=== PATIENT | male | born 1960 | race Caucasian/White ===

== ENCOUNTER 2020-07-18 03:07 | Emergency (ER) | payer MEDICAID, SELFPAY ==
[2020-07-18 03:36] VITALS: BP 156/90; PULSE 65; RESP 16; TEMP 36.4; O2SAT 98; BMI 22.8
--- NOTE | 2020-07-18 04:02 | ED_ITS ---
HPI - Extremity Problem General Chief complaint: Extremity Problem Stated complaint: RIGHT ARM PAIN Time Seen by Provider: 07/18/20 03:56 Source: patient Mode of arrival: ambulatory Limitations: no limitations History of Present Illness HPI Narrative: Appearance: Alert. Oriented X3. No acute distress. Eyes: Pupils equal, round and reactive to light. ENT: Pharynx normal. Neck: Normal inspection. Neck supple. No lymph nodes noted. No crepitus CVS: Normal heart rate and rhythm. Pulses normal. Normal S1 and S2 Respiratory: No respiratory distress. Breath sounds normal. No Wheezing. No rales Abdomen: Soft and nontender. No rigidity. No distention. good BS x4 Skin: Skin warm and dry. Normal skin color. Normal skin turgor. Extremities: No lower extremity edema. No lower extremity edema. No Lacerati ons. No Rash Neuro: Oriented X 3. No motor deficit. No sensory deficit. Moving all extermities. No slurred speech.Patient comes emergency room complaining of right forearm pain. Patient states that he injected heroin yesterday, states that this morning he started having redness in his right forearm, going upward in the pattern of his vein. Patient denies fever or chills. Patient denies pain a nywhere else in his arm other than the red streak Related Data Home Medications Medication Instructions Recorded Confirmed clonazepam 0.5 mg PO TID 02/12/20 02/12/20 dextroamphetamine-amphetamine 5 mg PO DAILY 02/12/20 02/12/20 [Adderall] methadone 48 mg PO DAILY 02/13/20 02/13/20 Previous Rx's Medication Instructions Recorded sulfamethoxazole-trimethoprim 1 tab PO BID #19 tab 07/18/20 [Bactrim DS] Allergies Allergy/AdvReac Type Severity Reaction Status Date / Time No Known Allergies Allergy Unverified 02/12/20 14:44 [No Known Allergies*] Review of Systems Review of Systems: Constitutional : No Weight loss, No Fever, No Chills, No Night Sweats, No Fatigue, No Malaise ENT/Mouth : No Hearing loss, No Ear Pain, No Nasal Congestion, No Sinus Pain, No Hoarseness, No sore throat, No Rhinorrhea, No Swallowing Difficulty Eyes: No Eye Pain, No Swelling, No Redness, No Foreign Body, No Discharge, No Vision Changes Cardiovascular : No Chest Pain, No SOB, No Dyspnea on Exertion, No Orthopnea, No Edema, No Palpitations Respiratory : No Cough, No Sputum, No Wheezing, No Smoke Exposure, No Dyspnea Gastrointestinal : No Nausea, No Vomiting, No Diarrhea, No Constipation, No abdominal Pain, No Hematochezia, No Melena Genitourinary : no irregular bleeding, No Dysuria, No Urinary Frequency, No Hematuria, No Urinary Incontinence, No Urgency, No Flank Pain, No Urinary Flow Changes, No Hesitancy Musculoskeletal : No joint pain, No Myalgias, No Joint Swelling Skin : Red streak in the right forearm and pain in that area Neuro : No Weakness, No Numbness, No Paresthesias, No Loss of Consciousness, No Dizziness, No Headache Psych : No Anxiety/Panic, No Depression, No SI/HI/AH/VH, No Social Issues, Heme/Lymph: No Bruising, No Bleeding,No Lymphadenopathy Endocrine : No Polyuria, No Polydipsia, No Temperature Intolerance PMFSH Past Medical History Medical History ADD (attention deficit disorder) Bipolar affective disorder Depression GERD (gastroesophageal reflux disease) Herniated cervical disc Hiccups History of BPH History of torsion of testis Hx of hepatitis C Hx of substance abuse Surgical History History of cystoscopy Hx of adenoidectomy Hx of colonoscopy Hx of hernia repair S/P rotator cuff repair Status post excision of lipoma Social History Social History Advance Directives: No Advance Directives Information Provided: No Physical Exam Vital Signs: Vital Signs: Last Vital Signs Temp 97.6 F 07/18/20 03:36 Pulse 65 07/18/20 04:29 Resp 18 07/18/20 04:29 BP 131/90 H 07/18/20 04:29 Pulse Ox 95 07/18/20 04:29 Body Mass Index 22.8 Appearance: Alert. Oriented X3. No acute distress. Eyes: Pupils equal, round and reactive to light. ENT: Pharynx normal. Neck: Normal inspection. Neck supple. No lymph nodes noted. No crepitus CVS: Normal heart rate and rhythm. Pulses normal. Normal S1 and S2 Respiratory: No respiratory distress. Breath sounds normal. No Wheezing. No rales Abdomen: Soft and nontender. No rigidity. No distention. good BS x4 Skin: Skin warm and dry. Multiple skin track cobb in both arms. There is a 5 cm streak in the right forearm, mild tenderness to palpation, no surrounding erythema, patient is able to flex and extend all fingers in both hands Extremities: No lower extremity edema. No lower extremity edema. No Lacerations. No Rash Neuro: Oriented X 3. No motor deficit. No sensory deficit. Moving all extermities. No slurred speech. Course Course Course Narrative: I discussed the labs with the patient, sepsis is not suspected. White blood cell count normal, lactate normal no fever, normal blood pressure. Patient was given 1 initial dose of Bactrim which covers MRSA. Patient instructed to return to the emergency room if the erythema spreads DVT in upper extremity is not suspected. Pain is very localized to the erythema in a 5 cm spot MDM - Extremity (Nontraumatic) Lab Data Result diagrams: 07/18/20 05:13 07/18/20 05:12 Labs: Lab Results 07/18/20 07/18/20 07/18/20 Range/Units 04:51 05:12 05:13 WBC 6.0 (4.8-10.8) X10*3/uL RBC 4.44 L (4.60-5.80) X10*6/uL Hgb 13.1 L (14.0-18.0) g/dl Hct 39.2 L (42-52) % MCV 88.3 (80-98) fL MCH 29.5 (27.0-33.0) pg MCHC 33.4 (31.0-36.0) g/dl RDW 13.6 (11.0-16.0) % Plt Count 273 (160-400) X10*3/uL MPV 8.2 L (9.4-12.4) fL Immature Gran % (Auto) 0.5 H (0.0-0.4) % Neut % (Auto) 65.2 (45-73) % Lymph % (Auto) 21.6 (20-40) % [place] % (Auto) 8.3 (2-11) % Eos % (Auto) 3.7 (0-4) % Baso % (Auto) 0.7 (0-2) % Lymph # (Auto) 1.3 (1.2-4.9) X10*3/uL [place] # (Auto) 0.5 (0.1-1.2) X10*3/uL Eos # (Auto) 0.2 (0.0-0.4) X10*3/uL Baso # (Auto) 0.0 (0.0-0.2) X10*3/uL Abs Immat Gran (auto) 0.03 (0.00-0.03) X10*3/uL Absolute Neuts (auto) 3.9 (2.0-8.3) X10*3/uL Absolute Nucleated RBC 0.000 (0.0-0.012) X10*3/uL Nucleated RBC % (auto) 0.0 (0.0-0.2) /100WBC Sodium 139 (135-145) mmol/L Potassium 4.3 (3.3-5.1) mmol/L Chloride 103 (96-108) mmol/L Carbon Dioxide 27 (22-29) mmol/L Anion Gap 13 (12-20) BUN 15 (9-16) mg/dL Creatinine 0.83 (0.5-1.4) mg/dL Estim Creat Clear Calc 89.9 Estimated GFR > 60 Random Glucose 112 (60-115) mg/dL Lactic Acid 1.0 (0.5-2.0) mmol/L Calcium 9.5 (8.4-10.2) mg/dL Discharge Plan Discharge Clinical Impression: Superficial thrombophlebitis Qualifiers: Superficial thrombophlebitis-Involved body area: upper extremity Laterality: right Qualified Code(s): I80.8 - Phlebitis and thrombophlebitis of other sites Patient Disposition: Home, Self-Care Instructions: Superficial Thrombophlebitis (ED) Additional Instructions: Please follow-up with your primary care physician tomorrow. If you have any worsening or new symptoms, please return to the emergency room or call 911 Prescriptions: New sulfamethoxazole-trimethoprim [Bactrim DS] 800-160 mg tablet 1 tab PO BID Qty: 19 RF: 0 No Action clonazepam 0.5 mg Tablet 0.5 mg PO TID RF: 0 dextroamphetamine-amphetamine [Adderall] 5 mg Tablet 5 mg PO DAILY RF: 0 methadone 10 mg/mL Concentrate 48 mg PO DAILY RF: 0
[2020-07-18 04:29] VITALS: BP 131/90; PULSE 65; RESP 18; O2SAT 95
[2020-07-18 05:20] LABS: Basophils Percent Auto 0.7 % (0-2); Eosinophils Absolute Auto 0.2 X10*3/uL (0.0-0.4); Eosinophils Percent Auto 3.7 % (0-4); Hematocrit 39.2 % (42-52); Hemoglobin 13.1 g/dl (14.0-18.0); Imm Gran Abs Auto 0.03 X10*3/uL (0.00-0.03); Imm Gran Pct Auto 0.5 % (0.0-0.4); Lymphocytes Absolute Auto 1.3 X10*3/uL (1.2-4.9); Lymphocytes Percent Auto 21.6 % (20-40); Mean Corpuscular HGB Conc 33.4 g/dl (31.0-36.0); Mean Corpuscular Hemoglobin 29.5 pg (27.0-33.0); Mean Corpuscular Volume 88.3 fL (80-98); Mean Platelet Volume 8.2 fL (9.4-12.4); Monocytes Absolute Auto 0.5 X10*3/uL (0.1-1.2); Monocytes Percent Auto 8.3 % (2-11); Neutrophils Absolute Auto 3.9 X10*3/uL (2.0-8.3); Neutrophils Percent Auto 65.2 % (45-73); Platelet Count 273 X10*3/uL (160-400); Red Blood Count 4.44 X10*6/uL (4.60-5.80); Red Cell Distribution Width 13.6 % (11.0-16.0)
[2020-07-18 05:27] LABS: MANUAL DIFF FLAG NO
[2020-07-18 05:40] LABS: Anion Gap 13 (12-20); Blood Urea Nitrogen 15 mg/dL (9-16); Calcium 9.5 mg/dL (8.4-10.2); Carbon Dioxide 27 mmol/L (22-29); Chloride 103 mmol/L (96-108); Creatinine Clr Calc Pharmacy 89.9; Estimated Glomerular Filt Rate > 60; Glucose Random 112 mg/dL (60-115); Potassium 4.3 mmol/L (3.3-5.1); Sodium 139 mmol/L (135-145)
[2020-07-18 06:14] VITALS: BP 143/92; PULSE 68; RESP 20; O2SAT 96
== END 2020-07-18 06:19 | disposition home or self-care (01) ==
PROVIDERS: Emergency Provider Emergency Medicine; PCP Internal Medicine
DX: I80.8 Phlebitis and thrombophlebitis of other sites (principal); M79.631 Pain in right forearm; F11.10 Opioid abuse, uncomplicated; Z86.19 Personal history of other infectious and parasitic diseases
CPT/HCPCS: 36415; 80048; 83605; 85025; 87040; 99283; 99284

== ENCOUNTER 2020-07-22 21:51 | Emergency (ER) | payer MEDICAID, SELFPAY ==
[2020-07-22 21:55] VITALS: BP 134/76; PULSE 79; RESP 16; TEMP 36.6; O2SAT 95; BMI 24.3
--- NOTE | 2020-07-22 22:27 | ED.GENADULT ---
HPI - General Adult General Chief complaint: General Medical Stated complaint: VEIN PAIN IN ARM Time Seen by Provider: 07/22/20 22:06 Source: patient Mode of arrival: ambulatory Limitations: no limitations History of Present Illness HPI narrative: 60-year-old male who presents emergency department for evaluation of pain in his right arm, patient was seen in the emergency department on 07/18/2020 and diagnosed with superficial thrombophlebitis secondary to injecting illicit drugs into his right arm. The patient had a laboratory evaluation at that time which was unremarkable including blood cultures which revealed no growth times 48 hours. The patient was started on Bactrim DS 1 pill twice a day. He states he has been taking his medication for 4 days with no improvement of his symptoms. He states that he has a constant, throbbing pain in the right forearm in the area where he has the thrombophlebitis. He states the redness is not improved. The pain is 6/10 at its worst. He did not take any medications for the pain. He denies injecting drugs in his right arm since he was diagnosed with superficial thrombophlebitis. He denies fever but he does feel fatigued. The patient is not interested in getting any assistance for his continued injection drug use. Related Data Home Medications Medication Instructions Recorded Confirmed clonazepam 0.5 mg PO TID 02/12/20 02/12/20 dextroamphetamine-amphetamine 5 mg PO DAILY 02/12/20 02/12/20 [Adderall] methadone 48 mg PO DAILY 02/13/20 02/13/20 Previous Rx's Medication Instructions Recorded sulfamethoxazole-trimethoprim 1 tab PO BID #19 tab 07/18/20 [Bactrim DS] cephalexin 500 mg PO QID 7 Days #28 cap 07/22/20 ibuprofen 600 mg PO Q6H PRN #30 tab 07/22/20 Allergies Allergy/AdvReac Type Severity Reaction Status Date / Time No Known Allergies Allergy Unverified 02/12/20 14:44 [No Known Allergies*] Review of Systems Review of Systems: Yes all other systems are reviewed and are negative Neurologic: Reports Abnormal speech present [facility] Past Medical History [facility] Narrative: The patient smokes 5 cigarettes per day, he states that he used to smoke 1 pack per day times 47 years, denies alcohol use, he continues to use injection heroin and cocaine. He uses both arms to inject these illicit substances. Medical History ADD (attention deficit disorder) Bipolar affective disorder Depression GERD (gastroesophageal reflux disease) Herniated cervical disc Hiccups History of BPH History of torsion of testis Hx of hepatitis C Hx of substance abuse Surgical History History of cystoscopy Hx of adenoidectomy Hx of colonoscopy Hx of hernia repair S/P rotator cuff repair Status post excision of lipoma Social History Social History Advance Directives: No Advance Directives Information Provided: No Physical Exam Vital Signs: Vital Signs: Last Vital Signs Temp 97.8 F 07/22/20 21:55 Pulse 79 07/22/20 21:55 Resp 16 07/22/20 21:55 BP 134/76 07/22/20 21:55 Pulse Ox 95 07/22/20 21:55 Body Mass Index 24.3 Const: General: cooperative, poor hygiene and other (Pleasant and cooperative) Nutritional Appearance: average body habitus Orientation/consciousness: oriented to person and oriented to place Limitations: no limitations HENMT: Head: Yes normal to inspection Ears: hearing grossly normal bilaterally Eyes: General: appearance normal, both eyes and all related structures Resp: Effort & Inspection: normal respiratory effort Skin: Other: The patient has multiple track cobb on both his left and right forearms, the right forearm reveals a linear area of erythema which is warm to the touch and tender and hard to palpation, this is consistent with his diagnosis of superficial thrombophlebitis. Neuro: General: oriented to person and oriented to place Cognition (Neuro): normal cognition Speech: Abnormal speech present Gait exam (Neuro): Normal gait present Psych: Appearance: grossly normal Mental Status: mental status grossly normal Speech and movement: Normal speech and movement present Affect: normal affect Attitude: cooperative Course Course Course Narrative: 60-year-old male with a history of injection drug use who presents to the emergency department for evaluation of superficial thrombophlebitis which is has not improved since starting Bactrim. Patient was advised to finish his course of Bactrim and was also started on cephalexin 500 mg 4 times a day for 7 days. He is advised to take ibuprofen Tylenol for pain and to use a heating pad on low for 15-20 minutes 4 to 6 times a day. He was given verbal and printed instructions on superficial thrombophlebitis and discharged home. I did offer him counseling for his injection drug use however states he is not interested in getting counseling at this time. Discharge Plan Discharge Clinical Impression: Superficial thrombophlebitis of arm Qualifiers: Laterality: right Qualified Code(s): I80.8 - Phlebitis and thrombophlebitis of other sites Patient Disposition: Home, Self-Care Instructions: Superficial Thrombophlebitis (ED) Additional Instructions: Your findings are consistent with a blood clot in infection the of the right arm, this is called superficial thrombophlebitis. Finish the Bactrim (sulfamethoxazole- trimethoprim) DS 1 pill twice a day. Also take Keflex (cephalexin) 500 mg pills, 1 pill 4 times a day for 7 days. Take ibuprofen 600 mg pills, 1 pills every 6 hours as needed for pain. Take Tylenol (acetaminophen) 500 mg pills, 2 pills every 4 to 6 hours as needed for pain. Follow-up with your doctor in 2 days. Please return to the emergency department if your symptoms get worse or if you develop any symptoms that are concerning to you. Prescriptions: New cephalexin 500 mg capsule 500 mg PO QID 7 Days Qty: 28 RF: 0 ibuprofen 600 mg tablet 600 mg PO Q6H PRN (Reason: pain) Qty: 30 RF: 0 No Action clonazepam 0.5 mg Tablet 0.5 mg PO TID RF: 0 dextroamphetamine-amphetamine [Adderall] 5 mg Tablet 5 mg PO DAILY RF: 0 methadone 10 mg/mL Concentrate 48 mg PO DAILY RF: 0 sulfamethoxazole-trimethoprim [Bactrim DS] 800-160 mg tablet 1 tab PO BID Qty: 19 RF: 0
[2020-07-22] MEDS: Ibuprofen 600 MG TABLET PO (23:26)
[2020-07-22] MEDS: cephALEXin 500 MG CAPSULE PO (23:26)
[2020-07-22 23:35] VITALS: BP 111/62; PULSE 77; RESP 16; TEMP 36.8; O2SAT 98
== END 2020-07-22 23:36 | disposition home or self-care (01) ==
PROVIDERS: Emergency Provider Emergency Medicine Emergency Medical Services; PCP Internal Medicine
DX: I80.8 Phlebitis and thrombophlebitis of other sites (principal); M79.601 Pain in right arm; F11.20 Opioid dependence, uncomplicated; F17.210 Nicotine dependence, cigarettes, uncomplicated; Z86.19 Personal history of other infectious and parasitic diseases
CPT/HCPCS: 99283; 99284

== ENCOUNTER 2020-12-14 06:13 | Emergency (ER) | payer MEDICAID, SELFPAY ==
[2020-12-14 06:22] VITALS: BP 143/86; PULSE 80; RESP 16; TEMP 36.4; O2SAT 96; BMI 22.1
--- NOTE | 2020-12-14 06:29 | ED.SKABFB ---
HPI - Skin/Abscess/Foreign Bdy General Chief complaint: Skin/Abscess/Foreign Body Stated complaint: arm infection Time Seen by Provider: 12/14/20 06:18 Source: patient Mode of arrival: ambulatory Limitations: no limitations History of Present Illness HPI narrative: Patient comes to the emergency room complaining of pain in his upper arm for the last 2 days. Patient denies fever chills. Patient states the pain is similar to the time that he was diagnosed with thrombophlebitis. Patient is known to be an IV drug user. At this time, patient does not have any abscesses that need to be drained, no cellulitis. Patient states his arm is not swollen, the pain is intermittent, worse with certain movements Related Data Home Medications Medication Instructions Recorded Confirmed clonazepam 0.5 mg tablet 0.5 mg PO TID 02/12/20 02/12/20 dextroamphetamine-amphetamine 5 mg 5 mg PO DAILY 02/12/20 02/12/20 tablet (Adderall) methadone 10 mg/mL oral concentrate 48 mg PO DAILY 02/13/20 02/13/20 Previous Rx's Medication Instructions Recorded sulfamethoxazole 800 1 tab PO BID #19 tab 07/18/20 mg-trimethoprim 160 mg tablet (Bactrim DS) cephalexin 500 mg capsule 500 mg PO QID 7 Days #28 cap 07/22/20 ibuprofen 600 mg tablet 600 mg PO Q6H PRN #30 tab 07/22/20 cephalexin 750 mg capsule 750 mg PO BID #20 cap 12/14/20 doxycycline hyclate 100 mg tablet 100 mg PO BID #20 tab 12/14/20 Allergies Allergy/AdvReac Type Severity Reaction Status Date / Time No Known Allergies Allergy Verified 08/07/20 07:15 [No Known Allergies*] Review of Systems Review of Systems: Constitutional : No Weight loss, No Fever, No Chills, No Night Sweats, No Fatigue, No Malaise ENT/Mouth : No Hearing loss, No Ear Pain, No Nasal Congestion, No Sinus Pain, No Hoarseness, No sore throat, No Rhinorrhea, No Swallowing Difficulty Eyes: No Eye Pain, No Swelling, No Redness, No Foreign Body, No Discharge, No Vision Changes Cardiovascular : No Chest Pain, No SOB, No Dyspnea on Exertion, No Orthopnea, No Edema, No Palpitations Respiratory : No Cough, No Sputum, No Wheezing, No Smoke Exposure, No Dyspnea Gastrointestinal : No Nausea, No Vomiting, No Diarrhea, No Constipation, No abdominal Pain, No Hematochezia, No Melena Genitourinary : no irregular bleeding, No Dysuria, No Urinary Frequency, No Hematuria, No Urinary Incontinence, No Urgency, No Flank Pain, No Urinary Flow Changes, No Hesitancy Musculoskeletal : Complaining of right upper arm pain, No Myalgias, No Joint Swelling Skin : No Skin Lesions, No rash Neuro : No Weakness, No Numbness, No Paresthesias, No Loss of Consciousness, No Dizziness, No Headache Psych : No Anxiety/Panic, No Depression, No SI/HI/AH/VH, No Social Issues, Heme/Lymph: No Bruising, No Bleeding,No Lymphadenopathy Endocrine : No Polyuria, No Polydipsia, No Temperature Intolerance PMFSH Past Medical History Medical History ADD (attention deficit disorder) Bipolar affective disorder Depression GERD (gastroesophageal reflux disease) Herniated cervical disc Hiccups History of BPH History of torsion of testis Hx of hepatitis C Hx of substance abuse Surgical History History of cystoscopy Hx of adenoidectomy Hx of colonoscopy Hx of hernia repair S/P rotator cuff repair Status post excision of lipoma Social History Social History Advance Directives: No Advance Directives Information Provided: No Physical Exam Vital Signs: Vital Signs: Last Vital Signs Temp 97.6 F 12/14/20 06:22 Pulse 80 12/14/20 06:22 Resp 16 12/14/20 06:22 BP 143/86 H 12/14/20 06:22 Pulse Ox 96 12/14/20 06:22 Body Mass Index 22.1 Const: Other: Appearance: Alert. Oriented X3. No acute distress. Eyes: Pupils equal, round and reactive to light. ENT: Pharynx normal. Neck: Normal inspection. Neck supple. No lymph nodes noted. No crepitus CVS: Normal heart rate and rhythm. Pulses normal. Normal S1 and S2 Respiratory: No respiratory distress. Breath sounds normal. No Wheezing. No rales Abdomen: Soft and nontender. No rigidity. No distention. good BS x4 Skin: Skin warm and dry. Multiple skin track cobb in both arms, crusting lesions throughout both arms, palpable cords in the distal aspect of her arms, now swelling, no erythema Extremities: No lower extremity edema. No lower extremity edema. No Lacerations. No Rash Neuro: Oriented X 3. No motor deficit. No sensory deficit. Moving all extermities. No slurred speech. Course Course Course Narrative: I discussed the labs with the patient, white blood cell count and lactic acid within normal limits, no fever. MDM - Skin/Abscess/Foreign Bdy Lab Data Result diagrams: 12/14/20 06:38 12/14/20 06:38 Labs: Lab Results 12/14/20 12/14/20 12/14/20 Range/Units 06:38 06:38 06:38 WBC 5.1 (4.8-10.8) X10*3/uL RBC 4.29 L (4.60-5.80) X10*6/uL Hgb 12.4 L (14.0-18.0) g/dl Hct 36.2 L (42-52) % MCV 84.4 (80-98) fL MCH 28.9 (27.0-33.0) pg MCHC 34.3 (31.0-36.0) g/dl RDW 13.5 (11.0-16.0) % Plt Count 228 (160-400) X10*3/uL MPV 8.2 L (9.4-12.4) fL Immature Gran % (Auto) 0.2 (0.0-0.4) % Neut % (Auto) 50.6 (45-73) % Lymph % (Auto) 34.3 (20-40) % [place] % (Auto) 9.8 (2-11) % Eos % (Auto) 4.5 H (0-4) % Baso % (Auto) 0.6 (0-2) % Lymph # (Auto) 1.8 (1.2-4.9) X10*3/uL [place] # (Auto) 0.5 (0.1-1.2) X10*3/uL Eos # (Auto) 0.2 (0.0-0.4) X10*3/uL Baso # (Auto) 0.0 (0.0-0.2) X10*3/uL Abs Immat Gran (auto) 0.01 (0.00-0.03) X10*3/uL Absolute Neuts (auto) 2.6 (2.0-8.3) X10*3/uL Absolute Nucleated RBC 0.000 (0.0-0.012) X10*3/uL Nucleated RBC % (auto) 0.0 (0.0-0.2) /100WBC Sodium 135 (135-145) mmol/L Potassium 4.0 (3.3-5.1) mmol/L Chloride 103 (96-108) mmol/L Carbon Dioxide 27 (22-29) mmol/L Anion Gap 9 L (12-20) BUN 10 (9-16) mg/dL Creatinine 0.84 (0.5-1.4) mg/dL Estim Creat Clear Calc 88.8 Estimated GFR > 60 Random Glucose 114 (60-115) mg/dL Lactic Acid 1.1 (0.5-2.0) mmol/L Calcium 9.3 (8.4-10.2) mg/dL Total Bilirubin 0.4 (0.0-1.0) mg/dL Direct Bilirubin 0.2 (0.0-0.5) mg/dL AST 16 (5-37) U/L ALT 14 (0-40) U/L Alkaline Phosphatase 88 (39-117) U/L Total Protein 7.4 (6.5-8.0) g/dL Albumin 3.7 (3.5-5.0) g/dL Discharge Plan Discharge Clinical Impression: Thrombophlebitis of arm, right Patient Disposition: Home, Self-Care Instructions: Superficial Thrombophlebitis (ED) Additional Instructions: Please follow-up with your primary care physician tomorrow. If you have any worsening or new symptoms, please return to the emergency room or call 911 Prescriptions: New doxycycline hyclate 100 mg tablet 100 mg PO BID Qty: 20 RF: 0 cephalexin 750 mg capsule 750 mg PO BID Qty: 20 RF: 0 No Action clonazepam 0.5 mg Tablet 0.5 mg PO TID RF: 0 dextroamphetamine-amphetamine [Adderall] 5 mg Tablet 5 mg PO DAILY RF: 0 methadone 10 mg/mL Concentrate 48 mg PO DAILY RF: 0 cephalexin 500 mg capsule 500 mg PO QID 7 Days Qty: 28 RF: 0 ibuprofen 600 mg tablet 600 mg PO Q6H PRN (Reason: pain) Qty: 30 RF: 0 sulfamethoxazole-trimethoprim [Bactrim DS] 800-160 mg tablet 1 tab PO BID Qty: 19 RF: 0
[2020-12-14 06:44] LABS: MANUAL DIFF FLAG NO
[2020-12-14 06:45] LABS: Basophils Percent Auto 0.6 % (0-2); Eosinophils Absolute Auto 0.2 X10*3/uL (0.0-0.4); Eosinophils Percent Auto 4.5 % (0-4); Hematocrit 36.2 % (42-52); Hemoglobin 12.4 g/dl (14.0-18.0); Imm Gran Abs Auto 0.01 X10*3/uL (0.00-0.03); Imm Gran Pct Auto 0.2 % (0.0-0.4); Lymphocytes Absolute Auto 1.8 X10*3/uL (1.2-4.9); Lymphocytes Percent Auto 34.3 % (20-40); Mean Corpuscular HGB Conc 34.3 g/dl (31.0-36.0); Mean Corpuscular Hemoglobin 28.9 pg (27.0-33.0); Mean Corpuscular Volume 84.4 fL (80-98); Mean Platelet Volume 8.2 fL (9.4-12.4); Monocytes Absolute Auto 0.5 X10*3/uL (0.1-1.2); Monocytes Percent Auto 9.8 % (2-11); Neutrophils Absolute Auto 2.6 X10*3/uL (2.0-8.3); Neutrophils Percent Auto 50.6 % (45-73); Platelet Count 228 X10*3/uL (160-400); Red Blood Count 4.29 X10*6/uL (4.60-5.80); Red Cell Distribution Width 13.5 % (11.0-16.0); White Blood Count 5.1 X10*3/uL (4.8-10.8)
[2020-12-14 06:56] LABS: Lactic Acid 1.1 mmol/L (0.5-2.0)
[2020-12-14 07:21] LABS: Alanine Aminotransferase 14 U/L (0-40); Albumin Level 3.7 g/dL (3.5-5.0); Alkaline Phosphatase 88 U/L (39-117); Anion Gap 9 (12-20); Aspartate Amino Transferase 16 U/L (5-37); Bilirubin Direct 0.2 mg/dL (0.0-0.5); Bilirubin Total 0.4 mg/dL (0.0-1.0); Blood Urea Nitrogen 10 mg/dL (9-16); Calcium 9.3 mg/dL (8.4-10.2); Carbon Dioxide 27 mmol/L (22-29); Chloride 103 mmol/L (96-108); Creatinine Clr Calc Pharmacy 88.8; Estimated Glomerular Filt Rate > 60; Glucose Random 114 mg/dL (60-115); Sodium 135 mmol/L (135-145); Total Protein 7.4 g/dL (6.5-8.0)
[2020-12-14 07:53] VITALS: BP 145/87; PULSE 57; RESP 16; TEMP 36.6; O2SAT 97
[2020-12-14] MEDS: cephALEXin 500 MG CAPSULE PO (08:13)
== END 2020-12-14 08:20 | disposition home or self-care (01) ==
PROVIDERS: Emergency Provider Emergency Medicine; PCP Internal Medicine
DX: I80.8 Phlebitis and thrombophlebitis of other sites (principal); F11.10 Opioid abuse, uncomplicated; Z79.899 Other long term (current) drug therapy
CPT/HCPCS: 36415; 80048; 80076; 83605; 85025; 87040; 99284

== ENCOUNTER 2020-12-21 19:42 | Emergency (ER) | payer MEDICAID, SELFPAY ==
[2020-12-21 19:54] VITALS: BP 122/88; PULSE 75; RESP 16; TEMP 36.3; O2SAT 98; BMI 22.1
== END 2020-12-21 20:44 | disposition left against medical advice (07) ==
PROVIDERS: Emergency Provider Emergency Medicine; PCP Internal Medicine
DX: R20.0 Anesthesia of skin (principal); F14.10 Cocaine abuse, uncomplicated
CPT/HCPCS: 99281; 99282

== ENCOUNTER 2020-12-22 12:55 | Emergency (ER) | payer MEDICAID, SELFPAY ==
[2020-12-22 14:04] VITALS: BP 125/83; PULSE 82; RESP 20; TEMP 37; O2SAT 97; BMI 22.1
--- NOTE | 2020-12-22 16:24 | ED_ITS ---
HPI - General Adult General Chief complaint: General Medical Stated complaint: tingling pain in fingers Time Seen by Provider: 12/22/20 16:18 Source: patient and old records reviewed Mode of arrival: ambulatory Limitations: no limitations History of Present Illness MD complaint: resolved tingling in fingers Onset (ago): week(s) Location: left, right and upper extremity Radiation: non-radiation Severity: mild Quality: burning Pain Consistency: intermittent and now resolved Relieving factors: none Exacerbating factors: other (substance use - injects cocaine) Associated symptoms: denies other symptoms Treatments prior to arrival: none Related Data Home Medications Medication Instructions Recorded Confirmed clonazepam 0.5 mg tablet 0.5 mg PO TID 02/12/20 02/12/20 dextroamphetamine-amphetamine 5 mg 5 mg PO DAILY 02/12/20 02/12/20 tablet (Adderall) methadone 10 mg/mL oral concentrate 48 mg PO DAILY 02/13/20 02/13/20 Previous Rx's Medication Instructions Recorded sulfamethoxazole 800 1 tab PO BID #19 tab 07/18/20 mg-trimethoprim 160 mg tablet (Bactrim DS) cephalexin 500 mg capsule 500 mg PO QID 7 Days #28 cap 07/22/20 ibuprofen 600 mg tablet 600 mg PO Q6H PRN #30 tab 07/22/20 cephalexin 750 mg capsule 750 mg PO BID #20 cap 12/14/20 doxycycline hyclate 100 mg tablet 100 mg PO BID #20 tab 12/14/20 Allergies Allergy/AdvReac Type Severity Reaction Status Date / Time No Known Allergies Allergy Verified 08/07/20 07:15 [No Known Allergies*] Review of Systems Review of Systems: Constitutional : No Fever, No Chills ENT/Mouth : No sore throat, No Rhinorrhea Eyes: No Eye Pain, No Swelling, No Redness Cardiovascular : No Chest Pain, No SOB Respiratory : No Cough, No Sputum, No Wheezing Gastrointestinal : No Nausea, No Vomiting, No Diarrhea Genitourinary : No Dysuria, No Urinary Frequency, Musculoskeletal : No joint pain, No Myalgias Skin : No Skin Lesions, No rash Neuro : No Weakness, No Numbness, No Dizziness, No Headache All other systems reviewed and are negative PMFSH Past Medical History Attestation statement: The following information was validated with the patient. Medical History ADD (attention deficit disorder) Bipolar affective disorder Depression GERD (gastroesophageal reflux disease) Herniated cervical disc Hiccups History of BPH History of torsion of testis Hx of hepatitis C Hx of substance abuse Surgical History History of cystoscopy Hx of adenoidectomy Hx of colonoscopy Hx of hernia repair S/P rotator cuff repair Status post excision of lipoma Social History Social History (Updated 12/22/20 @ 16:30 by Tiesha Vidal DO) Patient Tobacco Use Status: Current everyday Tobacco user Use of substances other than those prescribed or required for medical reasons: Yes Advance Directives: No Advance Directives Information Provided: No Physical Exam Vital Signs: Vital Signs: Last Vital Signs Temp 98.6 F 12/22/20 14:04 Pulse 82 12/22/20 14:04 Resp 20 12/22/20 14:04 BP 125/83 12/22/20 14:04 Pulse Ox 97 12/22/20 14:04 Body Mass Index 22.1 Appearance: Alert. Oriented X3. No acute distress. Eyes: Pupils equal, round and reactive to light. ENT: Pharynx normal. Neck: Normal inspection. Neck supple. CVS: Normal heart rate and rhythm. Pulses normal. Respiratory: No respiratory distress. Breath sounds normal. Abdomen: Soft and non-tender. Skin: Skin warm and dry. Normal skin color. active track cobb both arms but no signs of infection Extremities: No lower extremity edema. Neuro: Oriented X 3. No motor deficit. No sensory deficit. sensation intact throughout, 2+ bilateral radial pulse Medical Decision Making [facility] Narrative Medical decision making narrative: 60 yo male here with resolved intermittent finger tingling - no signs of infection, NV intact no issues anywhere else and it has gone away, this is intermittent so I do not suspect lyte abnormality given it's just the fingers, he also has no signs of vascular compromise. He has no neck pain. He has no signs of infection. I suspect this sensation is related to his substance abuse Discharge Plan Discharge Clinical Impression: Hand paresthesia Qualifiers: Laterality: bilateral Qualified Code(s): R20.2 - Paresthesia of skin Patient Disposition: Home, Self-Care Instructions: Paresthesia (ED) Additional Instructions: return to ED for any worsening symptoms or concerns Prescriptions: No Action clonazepam 0.5 mg Tablet 0.5 mg PO TID RF: 0 dextroamphetamine-amphetamine [Adderall] 5 mg Tablet 5 mg PO DAILY RF: 0 methadone 10 mg/mL Concentrate 48 mg PO DAILY RF: 0 cephalexin 500 mg capsule 500 mg PO QID 7 Days Qty: 28 RF: 0 ibuprofen 600 mg tablet 600 mg PO Q6H PRN (Reason: pain) Qty: 30 RF: 0 sulfamethoxazole-trimethoprim [Bactrim DS] 800-160 mg tablet 1 tab PO BID Qty: 19 RF: 0 doxycycline hyclate 100 mg tablet 100 mg PO BID Qty: 20 RF: 0 cephalexin 750 mg capsule 750 mg PO BID Qty: 20 RF: 0 Referrals: Sammy Rouse MD [Primary Care Provider] - 2 days (if not better)
== END 2020-12-22 17:06 | disposition home or self-care (01) ==
PROVIDERS: Emergency Provider Emergency Medicine; PCP Internal Medicine
DX: R20.2 Paresthesia of skin (principal); F17.200 Nicotine dependence, unspecified, uncomplicated; Z71.6 Tobacco abuse counseling; Z79.899 Other long term (current) drug therapy
CPT/HCPCS: 99282; 99283

== ENCOUNTER 2021-02-25 09:06 | Emergency (ER) | payer MEDICAID, SELFPAY ==
--- NOTE | ~2021-02-25 | US_ITS ---
EXAMINATION: US VENOUS WITH DOPPLER UPPER EXTREMITY, RIGHT CLINICAL INFORMATION: Pain right upper extremity with swelling. Active IVDU. Assess for DVT. COMPARISON: None TECHNIQUE: Ultrasound of the upper extremity is performed using compression sonography and color and pulse Doppler flow with assessment of augmentation of flow. There is also imaging and Doppler assessment of the jugular and subclavian veins. Spectral analysis with color-flow imaging is performed. FINDINGS: Respiratory variation, normal compression, and augmented flow are noted throughout the upper extremity including the axillary, brachial, cubital, and radial and ulnar veins. There is normal flow in the internal jugular and subclavian veins. There is no visible deep or superficial thrombophlebitis. Incidental node present in medial elbow soft tissues measuring 0.4 cm short axis. There is no soft tissue fluid collection or edema tracking in soft tissue planes. US/US venous duplex UE RT IMPRESSION: No DVT demonstrated in the right upper extremity.
[2021-02-25 09:14] VITALS: BP 121/87; PULSE 69; RESP 18; TEMP 36.3; O2SAT 100; BMI 22.1
--- NOTE | 2021-02-25 09:22 | ED.SKABFB ---
HPI - Skin/Abscess/Foreign Bdy General Chief complaint: Skin/Abscess/Foreign Body Stated complaint: rt arm pain ?inf Time Seen by Provider: 02/25/21 09:22 Source: patient Mode of arrival: ambulatory Limitations: no limitations History of Present Illness HPI narrative: patient is a current IV drug abuser. Now with pain in the right axilla and question of arm swelling. Denies fever or chills Onset (ago): day(s) Severity: mild Associated symptoms: denies other symptoms Related Data Home Medications Medication Instructions Recorded Confirmed clonazepam 0.5 mg tablet 0.5 mg PO TID 02/12/20 02/12/20 dextroamphetamine-amphetamine 5 mg 5 mg PO DAILY 02/12/20 02/12/20 tablet (Adderall) methadone 10 mg/mL oral concentrate 48 mg PO DAILY 02/13/20 02/13/20 Previous Rx's Medication Instructions Recorded sulfamethoxazole 800 1 tab PO BID #19 tab 07/18/20 mg-trimethoprim 160 mg tablet (Bactrim DS) cephalexin 500 mg capsule 500 mg PO QID 7 Days #28 cap 07/22/20 ibuprofen 600 mg tablet 600 mg PO Q6H PRN #30 tab 07/22/20 cephalexin 750 mg capsule 750 mg PO BID #20 cap 12/14/20 doxycycline hyclate 100 mg tablet 100 mg PO BID #20 tab 12/14/20 Allergies Allergy/AdvReac Type Severity Reaction Status Date / Time No Known Allergies Allergy Verified 08/07/20 07:15 [No Known Allergies*] Review of Systems Constitutional: Constitutional: Reports no additional constitutional complaints Eyes: Eyes: Reports no additional eye complaints ENT: Denies dizziness Cardiovascular: Cardiovascular: Reports no additional cardiovascular complaints Respiratory: Respiratory: Reports as per HPI Gastrointestinal: Gastrointestinal: Reports no additional gastrointestinal complaints Musculoskeletal: Musculoskeletal: Reports no additional musculoskeletal complaints Integumentary/Breasts: Skin/Breast: Denies rash Neurologic: Reports system reviewed and no additional complaints, except as documented, Denies dizziness and Denies Sensory deficit (Neuro) Psychiatric: Psychiatric: Denies anxiety PMFSH Past Medical History Medical History ADD (attention deficit disorder) Bipolar affective disorder Depression GERD (gastroesophageal reflux disease) Herniated cervical disc Hiccups History of BPH History of torsion of testis Hx of hepatitis C Hx of substance abuse Surgical History History of cystoscopy Hx of adenoidectomy Hx of colonoscopy Hx of hernia repair S/P rotator cuff repair Status post excision of lipoma Social History Social History Alcohol intake: never Patient Tobacco Use Status: Current everyday Tobacco user Use of substances other than those prescribed or required for medical reasons: Yes Advance Directives: No Physical Exam Vital Signs: Vital Signs: Last Vital Signs Temp 97.9 F 02/25/21 12:17 Pulse 63 02/25/21 12:17 Resp 18 02/25/21 12:17 BP 129/69 02/25/21 12:17 Pulse Ox 98 02/25/21 12:17 Body Mass Index 22.1 Const: General: healthy appearing Nutritional Appearance: average body habitus Orientation/consciousness: oriented to person and patient oriented x3 Limitations: no limitations HENMT: Head: Yes normal to inspection Ears: external ears normal General nose exam: Normal external nose present Mouth: Normal oral and palatal mucosa present and oropharynx normal Throat: Yes posterior oropharynx normal Eyes: General: appearance normal, both eyes and all related structures Neck: Other: supple Neck: Yes normal visual inspection Chest: Chest palpation & inspection: normal inspection of the chest Resp: Auscultation: clear to auscultation bilaterally Cardio: Jugular venous distension: no JVD Rate: regular rate Rhythm: regular rhythm Heart sounds: S1 normal heart sound present and S2 normal heart sound present GI: Inspection: Yes normal to inspection Palpation (GI): Soft to palpation, nontender and No hepatosplenomegaly present Auscultation: normal bowel sounds : General: Yes no CVA tenderness Back/Spine/Pelvis: Back: no CVA tenderness Skin: Other: old and new track cobb up both arms. no evidence of abscess or cellulitis, Neuro: General: oriented to person and patient oriented x3 Cranial nerves: Yes CN's II-XII intact bilaterally Motor exam (neuro): 5/5 motor strength present throughout Sensory Exam: No Sensory deficit (Neuro) Extrem: General: Yes normal to inspection Psych: Appearance: grossly normal Course Reevaluation(s) Reevaluation #1: no evidence of abscess or sepsis, no DVT Time: 12:45 MDM - Skin/Abscess/Foreign Bdy Imaging Data duplex right arm: Radiologist's impression: IMPRESSION: No DVT demonstrated in the right upper extremity. Discharge Plan Discharge Clinical Impression: Drug abuse, IV Arm pain Qualifiers: Laterality: right Qualified Code(s): M79.601 - Pain in right arm Patient Disposition: Home, Self-Care Instructions: Polysubstance Abuse (ED), Arm Pain (ED) Prescriptions: No Action clonazepam 0.5 mg Tablet 0.5 mg PO TID RF: 0 dextroamphetamine-amphetamine [Adderall] 5 mg Tablet 5 mg PO DAILY RF: 0 methadone 10 mg/mL Concentrate 48 mg PO DAILY RF: 0 cephalexin 500 mg capsule 500 mg PO QID 7 Days Qty: 28 RF: 0 ibuprofen 600 mg tablet 600 mg PO Q6H PRN (Reason: pain) Qty: 30 RF: 0 sulfamethoxazole-trimethoprim [Bactrim DS] 800-160 mg tablet 1 tab PO BID Qty: 19 RF: 0 doxycycline hyclate 100 mg tablet 100 mg PO BID Qty: 20 RF: 0 cephalexin 750 mg capsule 750 mg PO BID Qty: 20 RF: 0 Referrals: Sammy Rouse MD [Primary Care Provider] - 1 week
[2021-02-25 12:17] VITALS: BP 129/69; PULSE 63; RESP 18; TEMP 36.6; O2SAT 98
== END 2021-02-25 13:05 | disposition home or self-care (01) ==
PROVIDERS: Emergency Provider Emergency Medicine; PCP Internal Medicine
DX: M79.601 Pain in right arm (principal); R60.0 Localized edema; F11.10 Opioid abuse, uncomplicated; Z79.899 Other long term (current) drug therapy
CPT/HCPCS: 93971; 99284

== ENCOUNTER 2021-02-26 01:36 | Emergency (ER) | payer MEDICAID, SELFPAY ==
[2021-02-26 01:59] VITALS: BP 116/86; PULSE 72; RESP 18; TEMP 36.8; O2SAT 97; BMI 22.9
--- NOTE | 2021-02-26 02:43 | ED.EXTPRO ---
HPI - Extremity Problem General Chief complaint: General Medical Stated complaint: arm pain Time Seen by Provider: 02/26/21 02:39 Source: patient Mode of arrival: ambulatory Limitations: no limitations History of Present Illness HPI Narrative: Patient with history of IVDA use was seen earlier today for pain in the right forearm had venous Doppler done which was negative for DVT patient does have a history of cellulitis after using of IVDA came back as patient feel slight warm feeling of the right forearm with tenderness no fever no chills Related Data Home Medications Medication Instructions Recorded Confirmed clonazepam 0.5 mg tablet 0.5 mg PO TID 02/12/20 02/12/20 dextroamphetamine-amphetamine 5 mg 5 mg PO DAILY 02/12/20 02/12/20 tablet (Adderall) methadone 10 mg/mL oral concentrate 48 mg PO DAILY 02/13/20 02/13/20 Previous Rx's Medication Instructions Recorded sulfamethoxazole 800 1 tab PO BID #19 tab 07/18/20 mg-trimethoprim 160 mg tablet (Bactrim DS) cephalexin 500 mg capsule 500 mg PO QID 7 Days #28 cap 07/22/20 ibuprofen 600 mg tablet 600 mg PO Q6H PRN #30 tab 07/22/20 cephalexin 750 mg capsule 750 mg PO BID #20 cap 12/14/20 doxycycline hyclate 100 mg tablet 100 mg PO BID #20 tab 12/14/20 cephalexin 500 mg capsule 500 mg PO QID 10 Days #40 cap 02/26/21 doxycycline hyclate 100 mg tablet 100 mg PO BID #20 tab 02/26/21 Allergies Allergy/AdvReac Type Severity Reaction Status Date / Time No Known Allergies Allergy Verified 02/26/21 01:59 [No Known Allergies*] Review of Systems Review of Systems: Yes all other systems are reviewed and are negative PMFSH Past Medical History Medical History ADD (attention deficit disorder) Bipolar affective disorder Depression GERD (gastroesophageal reflux disease) Herniated cervical disc Hiccups History of BPH History of torsion of testis Hx of hepatitis C Hx of substance abuse Surgical History History of cystoscopy Hx of adenoidectomy Hx of colonoscopy Hx of hernia repair S/P rotator cuff repair Status post excision of lipoma Social History Social History Alcohol intake: never Patient Tobacco Use Status: Current everyday Tobacco user Advance Directives: No Advance Directives Information Provided: Yes Physical Exam Vital Signs: Vital Signs: Last Vital Signs Temp 98.2 F 02/26/21 01:59 Pulse 72 02/26/21 01:59 Resp 18 02/26/21 01:59 BP 116/86 02/26/21 01:59 Pulse Ox 97 02/26/21 01:59 Body Mass Index 22.9 Const: General: comfortable and no acute distress HENMT: Head: Yes normocephalic and Yes atraumatic Resp: Effort & Inspection: normal respiratory effort Auscultation: clear to auscultation bilaterally Cardio: Jugular venous distension: no JVD Palpation: normal PMI Rate: regular rate Rhythm: regular rhythm Heart sounds: S1 normal heart sound present and S2 normal heart sound present Extrem: Elbow/forearm/wrist images: 1. IVDA track cobb with slight warmth and redness right mid forearm no fluctuancy or swelling suggestive of any abscess or deeper infection MDM - Extremity (Nontraumatic) MDM Narrative Medical decision making narrative: Patient with mild cellulitis at the site of IVDA no signs of sepsis or deeper infection patient already had a venous Doppler which was negative for DVT earlier today discharge patient home on doxycycline and cephalexin advised to follow with PCP or report to the ER if gets worse Discharge Plan Discharge Clinical Impression: Cellulitis of right forearm Patient Disposition: Home, Self-Care Additional Instructions: Local care as advised Take antibiotic as prescribed Report to the ER if worsening of the redness/swelling/fever Prescriptions: New cephalexin 500 mg capsule 500 mg PO QID 10 Days Qty: 40 RF: 0 doxycycline hyclate 100 mg tablet 100 mg PO BID Qty: 20 RF: 0 No Action clonazepam 0.5 mg Tablet 0.5 mg PO TID RF: 0 dextroamphetamine-amphetamine [Adderall] 5 mg Tablet 5 mg PO DAILY RF: 0 methadone 10 mg/mL Concentrate 48 mg PO DAILY RF: 0 cephalexin 500 mg capsule 500 mg PO QID 7 Days Qty: 28 RF: 0 ibuprofen 600 mg tablet 600 mg PO Q6H PRN (Reason: pain) Qty: 30 RF: 0 sulfamethoxazole-trimethoprim [Bactrim DS] 800-160 mg tablet 1 tab PO BID Qty: 19 RF: 0 doxycycline hyclate 100 mg tablet 100 mg PO BID Qty: 20 RF: 0 cephalexin 750 mg capsule 750 mg PO BID Qty: 20 RF: 0 Interventions: ED Discharge Assessment Last Done: 02/26/21 03:14 Discharge Date/Time: 02/26/21 03:15
[2021-02-26] MEDS: cephALEXin 500 MG CAPSULE 1000 MG PO (03:06)
== END 2021-02-26 03:15 | disposition home or self-care (01) ==
PROVIDERS: Emergency Provider Internal Medicine; PCP Internal Medicine
DX: L03.113 Cellulitis of right upper limb (principal); F17.200 Nicotine dependence, unspecified, uncomplicated; Z71.6 Tobacco abuse counseling; Z79.899 Other long term (current) drug therapy
CPT/HCPCS: 99283

== ENCOUNTER 2021-03-03 21:36 | Emergency (ER) | payer MEDICAID, SELFPAY ==
[2021-03-03 22:17] VITALS: BP 137/79; PULSE 67; RESP 18; TEMP 36.4; O2SAT 97; BMI 23.6
--- NOTE | 2021-03-04 01:14 | PC.NURSE ---
rn and osman attempted to obtain labs, pt pulled away and is a difficult stick due to herion use.
--- NOTE | 2021-03-04 01:39 | ED.GENADULT ---
HPI - General Adult General Chief complaint: Skin/Abscess/Foreign Body Stated complaint: arm infection Time Seen by Provider: 03/04/21 00:39 Source: patient Mode of arrival: ambulatory History of Present Illness HPI narrative: 61-year-old male comes in with complaints of right upper extremity discomfort, known IVDA, recently treated for abscess and as per patient states there is been good resolution except for now he is having pain along the medial aspect of his biceps and when he raises his arm to the side states that he feels ?pulling?. Related Data Home Medications Medication Instructions Recorded Confirmed clonazepam 0.5 mg tablet 0.5 mg PO TID 02/12/20 02/12/20 dextroamphetamine-amphetamine 5 mg 5 mg PO DAILY 02/12/20 02/12/20 tablet (Adderall) methadone 10 mg/mL oral concentrate 48 mg PO DAILY 02/13/20 02/13/20 Previous Rx's Medication Instructions Recorded sulfamethoxazole 800 1 tab PO BID #19 tab 07/18/20 mg-trimethoprim 160 mg tablet (Bactrim DS) cephalexin 500 mg capsule 500 mg PO QID 7 Days #28 cap 07/22/20 ibuprofen 600 mg tablet 600 mg PO Q6H PRN #30 tab 07/22/20 cephalexin 750 mg capsule 750 mg PO BID #20 cap 12/14/20 doxycycline hyclate 100 mg tablet 100 mg PO BID #20 tab 12/14/20 cephalexin 500 mg capsule 500 mg PO QID 10 Days #40 cap 02/26/21 doxycycline hyclate 100 mg tablet 100 mg PO BID #20 tab 02/26/21 Allergies Allergy/AdvReac Type Severity Reaction Status Date / Time No Known Allergies Allergy Verified 02/26/21 01:59 [No Known Allergies*] Review of Systems Review of Systems: Pertinent positives and negatives as stated in HPI 10 point review of systems is otherwise negative. [facility] Past Medical History Source: nursing notes reviewed Medical History ADD (attention deficit disorder) Bipolar affective disorder Depression GERD (gastroesophageal reflux disease) Herniated cervical disc Hiccups History of BPH History of torsion of testis Hx of hepatitis C Hx of substance abuse Surgical History History of cystoscopy Hx of adenoidectomy Hx of colonoscopy Hx of hernia repair S/P rotator cuff repair Status post excision of lipoma Social History Social History Alcohol intake: never Patient Tobacco Use Status: Current everyday Tobacco user Advance Directives: No Advance Directives Information Provided: Yes Physical Exam Vital Signs: Vital Signs: Last Vital Signs Temp 97.5 F 03/03/21 22:17 Pulse 67 03/03/21 22:17 Resp 18 03/03/21 22:17 BP 137/79 03/03/21 22:17 Pulse Ox 97 03/03/21 22:17 Body Mass Index 23.6 VITAL SIGNS: Reviewed. GENERAL: Well developed, well nourished, in no acute distress. HEAD: Normocephalic/atraumatic EYES: PERRLA, EOMI OROPHARYNX: no oral lesions noted, posterior pharynx clear LUNGS: Normal breath sounds. No adventitious sounds or accessory muscle use. SpO2<97> CARDIOVASCULAR: Regular rate and rhythm without noted murmurs, no JVD or lower extremity edema. ABDOMEN: Soft, non-tender, non-distended with bowel sounds. RIGHT UPPER EXTREMITY: No obvious deformities, track cbob consistent with patient's IVDA use, no erythema/induration or evidence of abscess, no cords appreciate NEUROLOGIC: Alert and oriented x 4. Strength and sensation to light touch were grossly intact x 4. Course Course Course Narrative: 61-year-old male history and clinical presentation suggestive possible thrombophlebitis although there is no erythema or induration and will evaluate for possible DVT with D-dimer. Patient is otherwise completely asymptomatic not tachypneic not febrile On review of all investigations no evidence to suggest DVT, thrombophlebitis, or abscess formation. Patient otherwise discharged home in stable condition. Medical Decision Making Lab Data Labs: Lab Results 03/04/21 Range/Units 01:24 D-Dimer High Sensitivty < 150 NG/ML Discharge Plan Discharge Clinical Impression: Arm pain, Musculoskeletal pain Patient Disposition: Home, Self-Care Instructions: Arm Pain (ED), Musculoskeletal Pain (ED) Additional Instructions: Recommend using [id number] Tylenol and ibuprofen as needed for supplemental pain control. Follow-up with your primary care provider next 1-2 days for re-evaluation. Return to the ER for acute worsening of symptoms. Prescriptions: No Action clonazepam 0.5 mg Tablet 0.5 mg PO TID RF: 0 dextroamphetamine-amphetamine [Adderall] 5 mg Tablet 5 mg PO DAILY RF: 0 methadone 10 mg/mL Concentrate 48 mg PO DAILY RF: 0 cephalexin 500 mg capsule 500 mg PO QID 7 Days Qty: 28 RF: 0 ibuprofen 600 mg tablet 600 mg PO Q6H PRN (Reason: pain) Qty: 30 RF: 0 sulfamethoxazole-trimethoprim [Bactrim DS] 800-160 mg tablet 1 tab PO BID Qty: 19 RF: 0 doxycycline hyclate 100 mg tablet 100 mg PO BID Qty: 20 RF: 0 cephalexin 750 mg capsule 750 mg PO BID Qty: 20 RF: 0 cephalexin 500 mg capsule 500 mg PO QID 10 Days Qty: 40 RF: 0 doxycycline hyclate 100 mg tablet 100 mg PO BID Qty: 20 RF: 0 Referrals: Sammy Rouse MD [Primary Care Provider] - 2 days
[2021-03-04 01:43] LABS: D Dimer High Sensitivity < 150 NG/ML
[2021-03-04] MEDS: Acetaminophen 325 MG TABLET 975 MG PO (02:05)
[2021-03-04] MEDS: Ketorolac Tromethamine 15 MG/ML VIAL IM (02:05)
== END 2021-03-04 02:12 | disposition home or self-care (01) ==
PROVIDERS: Emergency Provider Student in an Organized Health Care Education/Training Program; PCP Internal Medicine
DX: M79.621 Pain in right upper arm (principal); M79.18 Myalgia, other site; F19.10 Other psychoactive substance abuse, uncomplicated; F17.200 Nicotine dependence, unspecified, uncomplicated
CPT/HCPCS: 36415; 85379; 96372; 99283; 99284; J1885

== ENCOUNTER 2022-01-03 20:39 | Emergency (ER) | payer MEDICAID, SELFPAY ==
[2022-01-03 20:56] VITALS: BP 144/89; PULSE 70; RESP 16; TEMP 37.2; O2SAT 96; BMI 24.3
== END 2022-01-03 23:01 | disposition left against medical advice (07) ==
PROVIDERS: Emergency Provider Emergency Medicine
DX: M79.621 Pain in right upper arm (principal); M79.622 Pain in left upper arm
CPT/HCPCS: 99281

== ENCOUNTER 2022-01-04 00:09 | Emergency (ER) | payer MEDICAID, SELFPAY ==
[2022-01-04 00:28] VITALS: BP 148/91; PULSE 72; RESP 18; TEMP 37.2; O2SAT 97; BMI 25.0
--- NOTE | 2022-01-04 01:31 | ED_ITS ---
HPI - General Adult General Chief complaint: General Medical Stated complaint: r wrist pain Time Seen by Provider: 01/04/22 00:39 Source: patient Mode of arrival: ambulatory Limitations: no limitations History of Present Illness HPI narrative: 61-year-old male came in for evaluation of right wrist pain and left arm pain. This is a 61-year-old male with history of IV drug abuse (admit to inject heroin every day), Patient came in for evaluation of right wrist pain with movement, pain started many years ago patient play guitar pain is along the radial aspect of the base of the thumb more with moving the thumb. Pain is constant for the past few years, aggravated by movement of the thumb bed rest, patient admit to IV drug injection but not to the right wrist. Patient also have a red streak along left arm had it before was diagnosed with thrombophlebitis and was cured by using p.o. antibiotic. Patient admitted to IV drug abuse and multiple injection randomly to both arms, decline breaking needles or foreign bodies, no apparent cellulitis or fluctuation or abscess. No fever or chills. No CP, no SOB. Related Data Home Medications Medication Instructions Recorded Confirmed clonazepam 0.5 mg tablet 0.5 mg PO TID 02/12/20 02/12/20 dextroamphetamine-amphetamine 5 mg 5 mg PO DAILY 02/12/20 02/12/20 tablet (Adderall) methadone 10 mg/mL oral concentrate 48 mg PO DAILY 02/13/20 02/13/20 Previous Rx's Medication Instructions Recorded sulfamethoxazole 800 1 tab PO BID #19 tabs 07/18/20 mg-trimethoprim 160 mg tablet (Bactrim DS) cephalexin 500 mg capsule 500 mg PO QID 7 days #28 caps 07/22/20 ibuprofen 600 mg tablet 600 mg PO Q6H PRN pain #30 tabs 07/22/20 cephalexin 750 mg capsule 750 mg PO BID #20 caps 12/14/20 doxycycline hyclate 100 mg tablet 100 mg PO BID #20 tabs 12/14/20 cephalexin 500 mg capsule 500 mg PO QID 10 days #40 caps 02/26/21 doxycycline hyclate 100 mg tablet 100 mg PO BID #20 tabs 02/26/21 doxycycline hyclate 100 mg tablet 100 mg PO BID #20 tabs 01/04/22 Allergies Allergy/AdvReac Type Severity Reaction Status Date / Time No Known Allergies Allergy Verified 01/03/22 21:01 [No Known Allergies*] Review of Systems Review of Systems: All other systems are reviewed and are negative Constitutional: Reports as per HPI and Reports no additional constitutional complaints Eyes: Reports as per HPI and Reports no additional eye complaints Reports system reviewed and no additional complaints, except as documented Cardiovascular: Reports as per HPI and Reports no additional cardiovascular complaints Respiratory: Reports as per HPI and Reports no additional respiratory complaints Gastrointestinal: Reports as per HPI and Reports no additional gastrointestinal complaints Genitourinary: Reports no additional female genitourinary complaints Musculoskeletal: Reports no additional musculoskeletal complaints Skin/Breast: Reports system reviewed and no additional complaints, except as docu Psychiatric: Reports no additional psychiatric complaints Endocrine: Reports no additional endocrine complaints Hematologic/Lymphatic: Reports no additional hematologic/lymphatic complaints Allergic/Immunologic: Reports no additional allergic/immunologic complaints Reports system reviewed and no additional complaints, except as documented and Reports Abnormal speech present PMFSH Past Medical History Medical History ADD (attention deficit disorder) Bipolar affective disorder Depression GERD (gastroesophageal reflux disease) Herniated cervical disc Hiccups History of BPH History of torsion of testis Hx of hepatitis C Hx of substance abuse Surgical History History of cystoscopy Hx of adenoidectomy Hx of colonoscopy Hx of hernia repair S/P rotator cuff repair Status post excision of lipoma Social History Social History Alcohol intake: never Patient Tobacco Use Status: Current everyday Tobacco user Advance Directives: No Physical Exam ED Vital Signs: Vital Signs - 24 hr 01/04/22 00:28 Temperature 98.9 F Pulse Rate 72 Respiratory Rate 18 Blood Pressure 148/91 H Pulse Oximetry 97 Oxygen Delivery Method Room Air BMI result Body Mass Index 25.0 Vital signs have been reviewed as appeared to be correct. Blood pressure normal. Heart rate normal. Respiration rate normal. Temperature normal. Oxygen saturation normal. Appearance: Alert. Oriented X3. No acute distress. Head: Normal external exam. Normocephalic. Atraumatic. No Sheridan signs noted. No raccoon eyes noted Eyes: PERRLA. EOMI. Conjunctiva and sclera normal. Eyelids normal. ENT: TM's Normal. Pharynx normal. Uvula midline. Moist mucous membranes. No trismus noted. No drooling noted. No muffled voice noted. Neck: Normal inspection. Neck supple. FROM. No adenopathy. Thyroid Normal. No meningeal signs. No neck mass noted. CVS: Normal heart rate and rhythm. Heart sound normal. No murmurs noted. Pulses normal throughout. Respiratory: No respiratory distress. Painless inspiration. Breath sounds normal. No wheezes/rales/rhonchi noted. Chest nontender. No accessory muscle usage noted or decreased air movement noted. Abdomen: Soft and nontender. Bowel sounds normal in all 4 quadrants. No distention noted. No organomegaly noted. No visible injury noted. Back: No CVA tenderness. Full range of motion noted. Skin: Skin warm and dry. Normal skin color. Normal skin turgor. No rashes/lesions/lacerations noted. Extremities: Positive Cole's test (grasping hte thumb and ulnar deviation will cause severe pain on the radial aspect of the wrist), with tenderness along the right APL and EPB tendons. Red streak along the medial aspect of the left forearm, no swelling, no palpable veins. Neuro: Oriented X 3. Cranial nerve exam: II-XII are grossly intact No motor deficit. No sensory deficit. Reflexes normal. Course Course Course Narrative: 1. Superficial thrombophlebitis patient had similar presentation in the past that responded to antibiotic orally. Start the patient on doxycycline for 10 days. 2. Right de Quervain tenosynovitis to the right wrist from overuses playing guitar. Thumb immobilization, NSAIDs, follow-up with hand surgeon. Discharge Plan Discharge Clinical Impression: Superficial thrombophlebitis, De Quervain's tenosynovitis Patient Disposition: Home, Self-Care Instructions: Superficial Thrombophlebitis (ED), De Quervain Disease (ED) Prescriptions: New doxycycline hyclate 100 mg tablet 100 mg PO BID Qty: 20 0RF No Action clonazepam 0.5 mg Tablet 0.5 mg PO TID dextroamphetamine-amphetamine [Adderall] 5 mg Tablet 5 mg PO DAILY methadone 10 mg/mL Concentrate 48 mg PO DAILY Label Comments: Pt states dose is coming down - presently at 48mg - from [facility] in [place] Rx Instructions: Daily dose admin at [facility] in [place] cephalexin 500 mg capsule 500 mg PO QID 7 Days Qty: 28 0RF ibuprofen 600 mg tablet 600 mg PO Q6H PRN (Reason: pain) Qty: 30 0RF sulfamethoxazole-trimethoprim [Bactrim DS] 800-160 mg tablet 1 tab PO BID Qty: 19 0RF doxycycline hyclate 100 mg tablet 100 mg PO BID Qty: 20 0RF cephalexin 750 mg capsule 750 mg PO BID Qty: 20 0RF cephalexin 500 mg capsule 500 mg PO QID 10 Days Qty: 40 0RF doxycycline hyclate 100 mg tablet 100 mg PO BID Qty: 20 0RF Referrals: Sammy Rouse MD [Primary Care Provider] - Shelli Pearce MD [Physician] -
[2022-01-04 02:15] VITALS: BP 129/93; PULSE 78; RESP 16; TEMP 36.6; O2SAT 99
== END 2022-01-04 02:17 | disposition home or self-care (01) ==
PROVIDERS: Emergency Provider Emergency Medicine; PCP Internal Medicine
DX: I80.8 Phlebitis and thrombophlebitis of other sites (principal); M65.4 Radial styloid tenosynovitis [de Quervain]; M25.531 Pain in right wrist; M79.602 Pain in left arm; F19.10 Other psychoactive substance abuse, uncomplicated; F11.20 Opioid dependence, uncomplicated; F17.200 Nicotine dependence, unspecified, uncomplicated
CPT/HCPCS: 99283; 99284

== ENCOUNTER 2022-01-05 10:35 | Emergency (ER) | payer MEDICAID, SELFPAY ==
--- NOTE | ~2022-01-05 | US_ITS ---
EXAMINATION: US VENOUS WITH DOPPLER UPPER EXTREMITY, LEFT CLINICAL INFORMATION: Redness and pain. COMPARISON: None TECHNIQUE: Ultrasound of the upper extremity is performed using compression sonography and color and pulse Doppler flow with assessment of augmentation of flow. There is also imaging and Doppler assessment of the jugular and subclavian veins. Spectral analysis with color-flow imaging is performed. FINDINGS: Respiratory variation, normal compression, and augmented flow are noted throughout the upper extremity including the axillary, brachial, cubital, and radial and ulnar veins. There is normal flow in the internal jugular and subclavian veins. There is no visible deep or superficial thrombophlebitis. If the patient's symptoms progress, a followup ultrasound in 5 -7 days might be of value to exclude proximal propagation from a nonvisualized distal arm vein. US/US venous duplex UE LT IMPRESSION: No evidence for deep venous thrombosis in the visualized veins of the left upper extremity.
[2022-01-05 11:09] VITALS: BP 145/85; PULSE 70; RESP 18; TEMP 36.9; O2SAT 95; BMI 25.0
--- NOTE | 2022-01-05 14:40 | ED_ITS ---
HPI - Extremity Problem General Chief complaint: Extremity Injury, Upper Stated complaint: infection in vein L arm returning from yesterday Time Seen by Provider: 01/05/22 11:13 Source: patient Mode of arrival: ambulatory Limitations: no limitations History of Present Illness HPI Narrative: 61 yo male with history of IVDA who presents to the ER with left upper arm pain and redness that started about 3 days ago. He reports when he went to lift something 3 days ago he noticed his left upper inner arm was sore. He noted a small bruise to the area but denied any trauma. Last night he noticed new onset redness to the area nd ongoing soreness and pain. He came here to the ER where he Was diagnosed with superficial thrombophlebitis and discharged on oral doxycycline. Patient was given a dose here and has taken 2 doses since. He reports the redness and pain is getting worse. He denies any fever or chills. He injects IV heroin mostly into his right forearm and hand, occasionally into the left hand but never into the left upper arm. He reports history of bacteremia in the past. MD Complaint: extremity pain and extremity swelling Onset (ago): day(s) Pain Consistency: constant Location: left and upper extremity Severity scale (1-10): 6 Quality: aching Radiation: proximal and distal Relieving factors: nothing Exacerbating factors: palpation Associated symptoms: denies other symptoms Related Data Home Medications Medication Instructions Recorded Confirmed clonazepam 0.5 mg tablet 0.5 mg PO TID 02/12/20 02/12/20 dextroamphetamine-amphetamine 5 mg 5 mg PO DAILY 02/12/20 02/12/20 tablet (Adderall) methadone 10 mg/mL oral concentrate 48 mg PO DAILY 02/13/20 02/13/20 Previous Rx's Medication Instructions Recorded sulfamethoxazole 800 1 tab PO BID #19 tabs 07/18/20 mg-trimethoprim 160 mg tablet (Bactrim DS) cephalexin 500 mg capsule 500 mg PO QID 7 days #28 caps 07/22/20 ibuprofen 600 mg tablet 600 mg PO Q6H PRN pain #30 tabs 07/22/20 cephalexin 750 mg capsule 750 mg PO BID #20 caps 12/14/20 doxycycline hyclate 100 mg tablet 100 mg PO BID #20 tabs 12/14/20 cephalexin 500 mg capsule 500 mg PO QID 10 days #40 caps 02/26/21 doxycycline hyclate 100 mg tablet 100 mg PO BID #20 tabs 02/26/21 doxycycline hyclate 100 mg tablet 100 mg PO BID #20 tabs 01/04/22 cephalexin 500 mg capsule 500 mg PO QID 10 days #40 caps 01/05/22 ibuprofen 600 mg tablet 600 mg PO Q8H PRN pain #14 tabs 01/05/22 Allergies Allergy/AdvReac Type Severity Reaction Status Date / Time No Known Allergies Allergy Verified 01/03/22 21:01 [No Known Allergies*] Review of Systems Review of Systems: Constitutional: No Fever, No Chills ENT/Mouth: No sore throat, No Rhinorrhea, No Swallowing Difficulty Cardiovascular: No Chest Pain, No SOB, No Orthopnea, No Edema Respiratory: No Cough, No Sputum, No Wheezing, No dyspnea Gastrointestinal: No Nausea, No Vomiting, No Diarrhea, No abdominal Pain Genitourinary: No Dysuria, No Urinary Frequency, No Hematuria Musculoskeletal: No joint pain, + Myalgias Skin: + Skin Lesions, No rash Neuro: No Weakness, No Numbness, No Dizziness, No Headache Psych: +Anxiety/Panic, No Depression Heme/Lymph: + Bruising, No Lymphadenopathy PMFSH Past Medical History Medical History ADD (attention deficit disorder) Bipolar affective disorder Depression GERD (gastroesophageal reflux disease) Herniated cervical disc Hiccups History of BPH History of torsion of testis Hx of hepatitis C Hx of substance abuse Surgical History History of cystoscopy Hx of adenoidectomy Hx of colonoscopy Hx of hernia repair S/P rotator cuff repair Status post excision of lipoma Social History Social History Alcohol intake: never Patient Tobacco Use Status: Current everyday Tobacco user Advance Directives: No Physical Exam Vital Signs: Vital Signs: Last Vital Signs Temp 97.9 F 01/05/22 14:55 Pulse 62 01/05/22 14:55 Resp 16 01/05/22 14:55 BP 127/80 01/05/22 14:55 Pulse Ox 96 01/05/22 14:55 O2 Del Method 01/05/22 14:55 BMI result Body Mass Index 25.0 Appearance: Alert. Oriented X3. No acute distress. Eyes: Pupils equal, round and reactive to light. ENT: Pharynx normal. Neck: Normal inspection. Neck supple. CVS: Normal heart rate and rhythm. Pulses normal. Respiratory: No respiratory distress. Breath sounds normal. Abdomen: Soft and nontender. +BS x4 Skin: Skin warm and dry. Normal skin color. Normal skin turgor. No rashes. Extremities: track cobb mostly on the dorsal aspect of the right forearm and left hand, no palpable abscesses. The left upper medial arm with a small ecchymotic area, tender. There is also a faint erythematous and warm area extending from the distal upper arm to close to the axillary area. No palpable abscess. Neurovascularly intact distally. compartments are soft and compressible. Neuro: Oriented X 3. No motor deficit. No sensory deficit. Course Course Course Narrative: 61-year-old male with history of IVDA presenting to the ER with left upper arm infection. Started on doxycycline yesterday for superficial thrombophlebitis. He had a upper extremity ultrasound today revealing no DVT. Exam could be indicative of early lymphangitis. Will get lab workup including lactic and blood cultures. Will check inflammatory markers. He does not appear to be septic at this time, nontoxic appearing. He has been compliant with the doxy and is only taken 3 doses so far. No fever chills at home. Dispo pending results. Reevaluation(s) Reevaluation #1: Patient has normal inflammatory markers, no leukocytosis. He appears well. Lactic is normal. Blood cultures have been sent. Low suspicion for bacteremia. Will add Keflex to his regimen and have him continue his previously prescribed oral doxycycline for possible cellulitis. This could be trauma related as well with visible bruising.. Will encourage warm soaks And start him on some NSAIDs. Patient is stable for discharge. Patient agrees with plan. MDM - Extremity (Nontraumatic) Lab Data Result diagrams: 01/05/22 15:04 01/05/22 15:04 Labs: Lab Results 01/05/22 01/05/22 01/05/22 Range/Units 15:04 15:04 15:04 WBC 4.6 L (4.8-10.8) X10*3/uL RBC 4.23 L (4.60-5.80) X10*6/uL Hgb 11.9 L (14.0-18.0) g/dl Hct 35.2 L (42.0-52.0) % MCV 83.2 (80.0-98.0) fL MCH 28.1 (27.0-33.0) pg MCHC 33.8 (31.0-36.0) g/dl RDW 13.5 (11.0-16.0) % Plt Count 228 (160-400) X10*3/uL MPV 8.3 L (9.4-12.4) fL Immature Gran % (Auto) 0.2 (0.0-0.4) % Neut % (Auto) 49.5 (45-73) % Lymph % (Auto) 34.9 (20-40) % [place] % (Auto) 8.6 (2-11) % Eos % (Auto) 5.9 H (0-4) % Baso % (Auto) 0.9 (0-2) % Lymph # (Auto) 1.6 (1.2-4.9) X10*3/uL [place] # (Auto) 0.4 (0.1-1.2) X10*3/uL Eos # (Auto) 0.3 (0.0-0.4) X10*3/uL Baso # (Auto) 0.0 (0.0-0.2) X10*3/uL Abs Immat Gran (auto) 0.01 (0.00-0.03) X10*3/uL Absolute Neuts (auto) 2.3 (2.0-8.3) x10*3/uL Absolute Nucleated RBC 0.000 (0.0-0.012) X10*3/uL Nucleated RBC % (auto) 0.0 (0.0-0.2) /100WBC ESR 12 (0-15) MM/HR Sodium 138 (135-145) mmol/L Potassium 3.8 (3.3-5.1) mmol/L Chloride 100 (96-108) mmol/L Carbon Dioxide 28 (22-29) mmol/L Anion Gap 14 (12-20) BUN 12 (9-16) mg/dL Creatinine 0.79 (0.5-1.4) mg/dL Estim Creat Clear Calc 93.7 Estimated GFR > 60 Random Glucose 127 H (60-115) mg/dL Lactic Acid (0.5-2.0) mmol/L Calcium 9.4 (8.4-10.2) mg/dL Magnesium 1.8 (1.6-2.6) mg/dL Total Bilirubin 0.3 (0.0-1.0) mg/dL Direct Bilirubin < 0.2 (0.0-0.5) mg/dL AST 15 (5-37) U/L ALT 8 (0-40) U/L Alkaline Phosphatase 95 (39-117) U/L C-Reactive Protein 0.35 (< or = 0.50) mg/dL Total Protein 7.2 (6.5-8.0) g/dL Albumin 3.6 (3.5-5.0) g/dL 01/05/22 Range/Units 15:04 WBC (4.8-10.8) X10*3/uL RBC (4.60-5.80) X10*6/uL Hgb (14.0-18.0) g/dl Hct (42.0-52.0) % MCV (80.0-98.0) fL MCH (27.0-33.0) pg MCHC (31.0-36.0) g/dl RDW (11.0-16.0) % Plt Count (160-400) X10*3/uL MPV (9.4-12.4) fL Immature Gran % (Auto) (0.0-0.4) % Neut % (Auto) (45-73) % Lymph % (Auto) (20-40) % Oxford % (Auto) (2-11) % Eos % (Auto) (0-4) % Baso % (Auto) (0-2) % Lymph # (Auto) (1.2-4.9) X10*3/uL [place] # (Auto) (0.1-1.2) X10*3/uL Eos # (Auto) (0.0-0.4) X10*3/uL Baso # (Auto) (0.0-0.2) X10*3/uL Abs Immat Gran (auto) (0.00-0.03) X10*3/uL Absolute Neuts (auto) (2.0-8.3) x10*3/uL Absolute Nucleated RBC (0.0-0.012) X10*3/uL Nucleated RBC % (auto) (0.0-0.2) /100WBC ESR (0-15) MM/HR Sodium (135-145) mmol/L Potassium (3.3-5.1) mmol/L Chloride (96-108) mmol/L Carbon Dioxide (22-29) mmol/L Anion Gap (12-20) BUN (9-16) mg/dL Creatinine (0.5-1.4) mg/dL Estim Creat Clear Calc Estimated GFR Random Glucose (60-115) mg/dL Lactic Acid 1.0 (0.5-2.0) mmol/L Calcium (8.4-10.2) mg/dL Magnesium (1.6-2.6) mg/dL Total Bilirubin (0.0-1.0) mg/dL Direct Bilirubin (0.0-0.5) mg/dL AST (5-37) U/L ALT (0-40) U/L Alkaline Phosphatase (39-117) U/L C-Reactive Protein (< or = 0.50) mg/dL Total Protein (6.5-8.0) g/dL Albumin (3.5-5.0) g/dL Discharge Plan Discharge Clinical Impression: Cellulitis Patient Disposition: Home, Self-Care Instructions: Cellulitis (ED), Warm Compress or Soak (ED) Additional Instructions: Your lab workup today was unremarkable. Recommend taking the prescribed antibiotic as directed, complete the entire course. Recommend continuing the previously prescribed antibiotic as well. Complete the entire course. Recommend using warm compresses to the area several times per day Stop using IV heroin. It can kill you. Recommend detox. If you develop new or worsening symptoms call 911 or come back to the ER for further evaluation. Prescriptions: New cephalexin 500 mg capsule 500 mg PO QID 10 Days Qty: 40 0RF ibuprofen 600 mg tablet 600 mg PO Q8H PRN (Reason: pain) Qty: 14 0RF No Action clonazepam 0.5 mg Tablet 0.5 mg PO TID dextroamphetamine-amphetamine [Adderall] 5 mg Tablet 5 mg PO DAILY methadone 10 mg/mL Concentrate 48 mg PO DAILY Label Comments: Pt states dose is coming down - presently at 48mg - from [facility] in [place] Rx Instructions: Daily dose admin at [facility] in [place] cephalexin 500 mg capsule 500 mg PO QID 7 Days Qty: 28 0RF ibuprofen 600 mg tablet 600 mg PO Q6H PRN (Reason: pain) Qty: 30 0RF sulfamethoxazole-trimethoprim [Bactrim DS] 800-160 mg tablet 1 tab PO BID Qty: 19 0RF doxycycline hyclate 100 mg tablet 100 mg PO BID Qty: 20 0RF cephalexin 750 mg capsule 750 mg PO BID Qty: 20 0RF cephalexin 500 mg capsule 500 mg PO QID 10 Days Qty: 40 0RF doxycycline hyclate 100 mg tablet 100 mg PO BID Qty: 20 0RF doxycycline hyclate 100 mg tablet 100 mg PO BID Qty: 20 0RF Interventions: ED Discharge Assessment Last Done: 01/05/22 16:13 Discharge Date/Time: 01/05/22 16:14
[2022-01-05 14:55] VITALS: BP 127/80; PULSE 62; RESP 16; TEMP 36.6; O2SAT 96
[2022-01-05 15:16] LABS: MANUAL DIFF FLAG NO
[2022-01-05 15:22] LABS: Basophils Percent Auto 0.9 % (0-2); Eosinophils Absolute Auto 0.3 X10*3/uL (0.0-0.4); Eosinophils Percent Auto 5.9 % (0-4); Hematocrit 35.2 % (42.0-52.0); Hemoglobin 11.9 g/dl (14.0-18.0); Imm Gran Abs Auto 0.01 X10*3/uL (0.00-0.03); Imm Gran Pct Auto 0.2 % (0.0-0.4); Lymphocytes Absolute Auto 1.6 X10*3/uL (1.2-4.9); Lymphocytes Percent Auto 34.9 % (20-40); Mean Corpuscular HGB Conc 33.8 g/dl (31.0-36.0); Mean Corpuscular Hemoglobin 28.1 pg (27.0-33.0); Mean Corpuscular Volume 83.2 fL (80.0-98.0); Mean Platelet Volume 8.3 fL (9.4-12.4); Monocytes Absolute Auto 0.4 X10*3/uL (0.1-1.2); Monocytes Percent Auto 8.6 % (2-11); Neutrophils Absolute Auto 2.3 x10*3/uL (2.0-8.3); Neutrophils Percent Auto 49.5 % (45-73); Platelet Count 228 X10*3/uL (160-400); Red Blood Count 4.23 X10*6/uL (4.60-5.80); Red Cell Distribution Width 13.5 % (11.0-16.0); White Blood Count 4.6 X10*3/uL (4.8-10.8)
[2022-01-05 15:40] LABS: Alanine Aminotransferase 8 U/L (0-40); Albumin Level 3.6 g/dL (3.5-5.0); Alkaline Phosphatase 95 U/L (39-117); Anion Gap 14 (12-20); Aspartate Amino Transferase 15 U/L (5-37); Bilirubin Direct < 0.2 mg/dL (0.0-0.5); Bilirubin Total 0.3 mg/dL (0.0-1.0); Blood Urea Nitrogen 12 mg/dL (9-16); C Reactive Protein 0.35 mg/dL (< or = 0.50); Calcium 9.4 mg/dL (8.4-10.2); Carbon Dioxide 28 mmol/L (22-29); Chloride 100 mmol/L (96-108); Creatinine Clr Calc Pharmacy 93.7; Estimated Glomerular Filt Rate > 60; Glucose Random 127 mg/dL (60-115); Magnesium 1.8 mg/dL (1.6-2.6); Potassium 3.8 mmol/L (3.3-5.1); Sodium 138 mmol/L (135-145); Total Protein 7.2 g/dL (6.5-8.0)
[2022-01-05 15:54] LABS: Erythrocyte Sedimentation Rate 12 MM/HR (0-15)
== END 2022-01-05 16:14 | disposition home or self-care (01) ==
PROVIDERS: Physician Assistant; Emergency Provider Emergency Medicine; PCP Internal Medicine
DX: L03.114 Cellulitis of left upper limb (principal); F11.10 Opioid abuse, uncomplicated; F17.200 Nicotine dependence, unspecified, uncomplicated; Z71.6 Tobacco abuse counseling; Z79.899 Other long term (current) drug therapy
CPT/HCPCS: 36415; 80048; 80076; 83605; 83735; 85025; 85652; 86140; 87040; 93971; 99283; 99284

== ENCOUNTER 2022-01-13 12:30 | Emergency (ER) | payer MEDICAID, SELFPAY ==
[2022-01-13 13:05] VITALS: BP 137/90; PULSE 70; RESP 16; TEMP 36.5; O2SAT 97; BMI 25.0
--- NOTE | 2022-01-13 16:38 | ED_ITS ---
HPI - Extremity Problem General Chief complaint: Extremity Problem Stated complaint: arm pain in both arms Time Seen by Provider: 01/13/22 14:18 Source: patient Mode of arrival: ambulatory Limitations: no limitations History of Present Illness HPI Narrative: 62-year-old male with a history of IV drug abuse who presents with some redness and streaking of the right forearm which she has noticed for the last few days. Of note patient was seen here on January 04 and diagnosed with superficial phlebitis of the left upper extremity. Had an ultrasound that was negative for DVT. He was started on doxycycline. He returned 2 days later for persistent symptoms and cephalexin was also started. Patient tells me the left upper arm seems improved but he now has some redness and streaking of the right forearm. He does use IV drugs daily. He is not currently interested in any detox resources. He denies associated weakness, swelling, numbness of the extremity. Related Data Home Medications Medication Instructions Recorded Confirmed clonazepam 0.5 mg tablet 0.5 mg PO TID 02/12/20 02/12/20 dextroamphetamine-amphetamine 5 mg 5 mg PO DAILY 02/12/20 02/12/20 tablet (Adderall) methadone 10 mg/mL oral concentrate 48 mg PO DAILY 02/13/20 02/13/20 Previous Rx's Medication Instructions Recorded sulfamethoxazole 800 1 tab PO BID #19 tabs 07/18/20 mg-trimethoprim 160 mg tablet (Bactrim DS) cephalexin 500 mg capsule 500 mg PO QID 7 days #28 caps 07/22/20 ibuprofen 600 mg tablet 600 mg PO Q6H PRN pain #30 tabs 07/22/20 cephalexin 750 mg capsule 750 mg PO BID #20 caps 12/14/20 doxycycline hyclate 100 mg tablet 100 mg PO BID #20 tabs 12/14/20 cephalexin 500 mg capsule 500 mg PO QID 10 days #40 caps 02/26/21 doxycycline hyclate 100 mg tablet 100 mg PO BID #20 tabs 02/26/21 doxycycline hyclate 100 mg tablet 100 mg PO BID #20 tabs 01/04/22 cephalexin 500 mg capsule 500 mg PO QID 10 days #40 caps 01/05/22 ibuprofen 600 mg tablet 600 mg PO Q8H PRN pain #14 tabs 01/05/22 Allergies Allergy/AdvReac Type Severity Reaction Status Date / Time No Known Allergies Allergy Verified 01/03/22 21:01 [No Known Allergies*] Review of Systems Review of Systems: Yes all other systems are reviewed and are negative Constitutional: Constitutional: Reports no additional constitutional complaints, Denies body ache(s), Denies chills, Denies fever(s), Denies headache(s) and Denies weakness Eyes: Eyes: Reports no additional eye complaints and Denies change in vision ENT: Reports system reviewed and no additional complaints, except as documented, Denies dizziness, Denies headache(s), Denies nasal congestion, Denies nasal discharge and Denies neck pain Cardiovascular: Cardiovascular: Reports no additional cardiovascular complaints, Denies chest pain, Denies leg edema and Denies dyspnea Respiratory: Respiratory: Reports no additional respiratory complaints, Denies cough and Denies dyspnea Gastrointestinal: Gastrointestinal: Reports no additional gastrointestinal complaints, Denies abdominal pain, Denies diarrhea, Denies nausea and Denies vomiting Genitourinary: Genitourinary: Denies urinary incontinence Musculoskeletal: Musculoskeletal: Reports no additional musculoskeletal complaints, Denies back pain, Denies arthralgias, Denies joint swelling, Denies neck pain, Denies numbness and Denies tingling Integumentary/Breasts: Skin/Breast: Reports system reviewed and no additional complaints, except as docu, Reports erythema and Denies rash Neurologic: Reports system reviewed and no additional complaints, except as documented, Denies Abnormal speech present, Denies dizziness, Denies headache(s), Denies numbness, Denies tingling and Denies weakness PMFSH Past Medical History Attestation statement: The following information was validated with the patient. Source: old records reviewed and nursing notes reviewed Medical History ADD (attention deficit disorder) Bipolar affective disorder Depression GERD (gastroesophageal reflux disease) Herniated cervical disc Hiccups History of BPH History of torsion of testis Hx of hepatitis C Hx of substance abuse Surgical History History of cystoscopy Hx of adenoidectomy Hx of colonoscopy Hx of hernia repair S/P rotator cuff repair Status post excision of lipoma Social History Social History Alcohol intake: never Patient Tobacco Use Status: Current everyday Tobacco user Advance Directives: No Advance Directives Information Provided: Yes Physical Exam Vital Signs: Vital Signs: Last Vital Signs Temp 97.7 F 01/13/22 13:05 Pulse 70 01/13/22 13:05 Resp 16 01/13/22 13:05 BP 137/90 H 01/13/22 13:05 Pulse Ox 97 01/13/22 13:05 O2 Del Method 01/13/22 13:05 BMI result Body Mass Index 25.0 Const: General: cooperative, healthy appearing, comfortable and no acute distress Orientation/consciousness: patient oriented x3 Limitations: no limitations HEENT: Head: Yes normal to inspection Ears: hearing grossly normal bilaterally General nose exam: Normal external nose present Face and sinus: Yes normal facial exam Mouth: Normal oral and palatal mucosa present Throat: Yes posterior oropharynx normal Eyes: General: appearance normal, both eyes and all related structures Pupils: Equal, round and reactive pupils present Neck: Neck: Yes normal visual inspection Chest: Chest palpation & inspection: normal inspection of the chest Resp: Effort & Inspection: normal respiratory effort Cardio: Peripheral pulses: Peripheral pulses 2+ throughout GI: Auscultation: normal bowel sounds Back/Spine/Pelvis: Thoracic/Lumbar Spine: thoracic and lumbar spine normal to inspection Skin: General skin exam: no rashes or lesions noted Neuro: General: patient oriented x3, no focal motor deficits and normal sensation to monofilament Cranial nerves: Yes Equal, round and reactive pupils present Cognition (Neuro): normal cognition Speech: No Abnormal speech present Gait exam (Neuro): Normal gait present Motor exam (neuro): 5/5 motor strength present throughout Extrem: Other: to bilateral FAs there are multiple injection sites noted LUE otherwise normal RUE with several corded veins noted with local erythema around the vessels. No swelling. NV intact distally. General: Yes normal to inspection MDM - Extremity (Nontraumatic) MDM Narrative Medical decision making narrative: 62-year-old male with a history of IV drug abuse here with superficial phlebitis of the right upper extremity. No evidence of cellulitis or abscess. Patient is currently taking cephalexin. We discussed he should also use warm compresses, NSAIDs for discomfort. This time patient is not interested in detox resources but we did discuss the [facility] and available options. Reviewed worrisome signs and symptoms with the patient and when to return. Comfortable plan for discharge home. Medical Records Attestation: I reviewed the patient's medical records. Lab Data Attestation: I reviewed the patient's lab results. Discharge Plan Discharge Clinical Impression: Superficial thrombophlebitis Patient Disposition: Home, Self-Care Instructions: Superficial Thrombophlebitis (ED) Additional Instructions: Continue the antibiotic Consider following up with the [facility] Warm compresses to the area Prescriptions: No Action clonazepam 0.5 mg Tablet 0.5 mg PO TID dextroamphetamine-amphetamine [Adderall] 5 mg Tablet 5 mg PO DAILY methadone 10 mg/mL Concentrate 48 mg PO DAILY Label Comments: Pt states dose is coming down - presently at 48mg - from [facility] in [place] Rx Instructions: Daily dose admin at [facility] in [place] cephalexin 500 mg capsule 500 mg PO QID 7 Days Qty: 28 0RF ibuprofen 600 mg tablet 600 mg PO Q6H PRN (Reason: pain) Qty: 30 0RF sulfamethoxazole-trimethoprim [Bactrim DS] 800-160 mg tablet 1 tab PO BID Qty: 19 0RF doxycycline hyclate 100 mg tablet 100 mg PO BID Qty: 20 0RF cephalexin 750 mg capsule 750 mg PO BID Qty: 20 0RF cephalexin 500 mg capsule 500 mg PO QID 10 Days Qty: 40 0RF doxycycline hyclate 100 mg tablet 100 mg PO BID Qty: 20 0RF cephalexin 500 mg capsule 500 mg PO QID 10 Days Qty: 40 0RF ibuprofen 600 mg tablet 600 mg PO Q8H PRN (Reason: pain) Qty: 14 0RF doxycycline hyclate 100 mg tablet 100 mg PO BID Qty: 20 0RF Interventions: ED Discharge Assessment Last Done: 01/13/22 16:46 Discharge Date/Time: 01/13/22 16:47
== END 2022-01-13 16:47 | disposition home or self-care (01) ==
PROVIDERS: Emergency Provider Emergency Medicine; PCP Internal Medicine
DX: I80.8 Phlebitis and thrombophlebitis of other sites (principal); F17.200 Nicotine dependence, unspecified, uncomplicated; Z71.6 Tobacco abuse counseling; Z79.899 Other long term (current) drug therapy
CPT/HCPCS: 99282

== ENCOUNTER 2022-09-17 16:39 | Emergency (ER) | payer MEDICAID, SELFPAY ==
--- NOTE | 2022-09-17 16:51 | ED_ITS ---
HPI - Eye Problem General Chief complaint: Eye Problems Stated complaint: ?Fb in L eye Time Seen by Provider: 09/17/22 17:13 Source: patient Mode of arrival: ambulatory Limitations: no limitations Related Data Home Medications Medication Instructions Recorded Confirmed clonazepam 0.5 mg tablet 0.5 mg PO TID 02/12/20 02/12/20 dextroamphetamine-amphetamine 5 mg 5 mg PO DAILY 02/12/20 02/12/20 tablet (Adderall) methadone 10 mg/mL oral concentrate 48 mg PO DAILY 02/13/20 02/13/20 Previous Rx's Medication Instructions Recorded sulfamethoxazole 800 1 tab PO BID #19 tabs 07/18/20 mg-trimethoprim 160 mg tablet (Bactrim DS) cephalexin 500 mg capsule 500 mg PO QID 7 days #28 caps 07/22/20 ibuprofen 600 mg tablet 600 mg PO Q6H PRN pain #30 tabs 07/22/20 cephalexin 750 mg capsule 750 mg PO BID #20 caps 12/14/20 doxycycline hyclate 100 mg tablet 100 mg PO BID #20 tabs 12/14/20 cephalexin 500 mg capsule 500 mg PO QID 10 days #40 caps 02/26/21 doxycycline hyclate 100 mg tablet 100 mg PO BID #20 tabs 02/26/21 doxycycline hyclate 100 mg tablet 100 mg PO BID #20 tabs 01/04/22 cephalexin 500 mg capsule 500 mg PO QID 10 days #40 caps 01/05/22 ibuprofen 600 mg tablet 600 mg PO Q8H PRN pain #14 tabs 01/05/22 Allergies Allergy/AdvReac Type Severity Reaction Status Date / Time No Known Allergies Allergy Verified 01/03/22 21:01 [No Known Allergies*] [facility] Past Medical History Medical History ADD (attention deficit disorder) Bipolar affective disorder Depression GERD (gastroesophageal reflux disease) Herniated cervical disc Hiccups History of BPH History of torsion of testis Hx of hepatitis C Hx of substance abuse Surgical History History of cystoscopy Hx of adenoidectomy Hx of colonoscopy Hx of hernia repair S/P rotator cuff repair Status post excision of lipoma Social History Social History Alcohol intake: never Patient Tobacco Use Status: Current everyday Tobacco user Physical Exam Vital Signs: Vital Signs: Last Vital Signs Temp 97.8 F 09/17/22 16:52 Pulse 69 09/17/22 16:52 Resp 18 09/17/22 16:52 BP 157/101 H 09/17/22 16:52 Pulse Ox 97 09/17/22 16:52 O2 Del Method Room Air 09/17/22 16:52 BMI result Body Mass Index 25.7 Course Course Course Narrative: This is a rapid medical exam. Deferred additional HPI, ROS, PE to primary provider. 62 yo male with history of IVDA here with left eye irritation, redness and concern for FB x 2 days. Will need eye exam, visual acuity. VSS Discharge Plan Discharge Prescriptions: No Action clonazepam 0.5 mg Tablet 0.5 mg PO TID dextroamphetamine-amphetamine [Adderall] 5 mg Tablet 5 mg PO DAILY methadone 10 mg/mL Concentrate 48 mg PO DAILY Patient Comments: Pt states dose is coming down - presently at 48mg - from [facility] in [place] Rx Instructions: Daily dose admin at [facility] in [place] cephalexin 500 mg capsule 500 mg PO QID 7 Days Qty: 28 0RF ibuprofen 600 mg tablet 600 mg PO Q6H PRN (Reason: pain) Qty: 30 0RF sulfamethoxazole-trimethoprim [Bactrim DS] 800-160 mg tablet 1 tab PO BID Qty: 19 0RF doxycycline hyclate 100 mg tablet 100 mg PO BID Qty: 20 0RF cephalexin 750 mg capsule 750 mg PO BID Qty: 20 0RF cephalexin 500 mg capsule 500 mg PO QID 10 Days Qty: 40 0RF doxycycline hyclate 100 mg tablet 100 mg PO BID Qty: 20 0RF cephalexin 500 mg capsule 500 mg PO QID 10 Days Qty: 40 0RF ibuprofen 600 mg tablet 600 mg PO Q8H PRN (Reason: pain) Qty: 14 0RF doxycycline hyclate 100 mg tablet 100 mg PO BID Qty: 20 0RF
[2022-09-17 16:52] VITALS: BP 157/101; PULSE 69; RESP 18; TEMP 36.6; O2SAT 97; BMI 25.7
--- NOTE | 2022-09-18 16:51 | ED.GENADULT ---
HPI - General Adult General Chief complaint: Eye Problems Stated complaint: ?Fb in L eye Time Seen by Provider: 09/17/22 17:13 Source: patient Mode of arrival: ambulatory Limitations: no limitations History of Present Illness HPI narrative: Patient is a 62 year old assigned male at with no reported medical history presenting to the emergency department today with left eye irritation. Patient states that his left eye has been irritated and he has felt like something is in it. Patient states that he has no floaters and thinks maybe that's what it is in his eye. Patient denies any dizziness, lightheadedness, abdominal pain, nausea, vomiting, fever, chills, blurry vision, double vision, loss of vision, chest pain, difficulty breathing, shortness of breath, back pain, night sweats, pain with urination, increased urinary frequency, increased urinary urgency, blood in his urine or stool, syncope or a near syncopal episode, recent trauma or falls, bowel incontinence, bladder incontinence, bowel retention, bladder retention, or any other complaints at this time. Onset (ago): day(s) Location: eyes (left) Radiation: non-radiation Severity: mild Severity scale (1-10): 3 Relieving factors: none Exacerbating factors: none Associated symptoms: denies other symptoms Treatments prior to arrival: none Related Data Home Medications Medication Instructions Recorded Confirmed clonazepam 0.5 mg tablet 0.5 mg PO TID 02/12/20 02/12/20 dextroamphetamine-amphetamine 5 mg 5 mg PO DAILY 02/12/20 02/12/20 tablet (Adderall) methadone 10 mg/mL oral concentrate 48 mg PO DAILY 02/13/20 02/13/20 Previous Rx's Medication Instructions Recorded sulfamethoxazole 800 1 tab PO BID #19 tabs 07/18/20 mg-trimethoprim 160 mg tablet (Bactrim DS) cephalexin 500 mg capsule 500 mg PO QID 7 days #28 caps 07/22/20 ibuprofen 600 mg tablet 600 mg PO Q6H PRN pain #30 tabs 07/22/20 cephalexin 750 mg capsule 750 mg PO BID #20 caps 12/14/20 doxycycline hyclate 100 mg tablet 100 mg PO BID #20 tabs 12/14/20 cephalexin 500 mg capsule 500 mg PO QID 10 days #40 caps 02/26/21 doxycycline hyclate 100 mg tablet 100 mg PO BID #20 tabs 02/26/21 doxycycline hyclate 100 mg tablet 100 mg PO BID #20 tabs 01/04/22 cephalexin 500 mg capsule 500 mg PO QID 10 days #40 caps 01/05/22 ibuprofen 600 mg tablet 600 mg PO Q8H PRN pain #14 tabs 01/05/22 erythromycin 5 mg/gram (0.5 %) eye 0.5 inch ophthalmic (eye) Q4H #3.5 09/17/22 ointment grams Allergies Allergy/AdvReac Type Severity Reaction Status Date / Time No Known Allergies Allergy Verified 01/03/22 21:01 [No Known Allergies*] Review of Systems Constitutional: Constitutional: Reports no additional constitutional complaints, Denies chills, Denies fever(s) and Denies night sweats Eyes: Eyes: Reports no additional eye complaints, Denies blurry vision, Denies change in vision, Denies diplopia, Denies eye discharge, Reports irritation (left), Denies loss of vision and Denies eye pain ENT: Denies dizziness Cardiovascular: Cardiovascular: Reports no additional cardiovascular complaints, Denies chest pain, Denies lightheadedness, Denies Loss of Consciousness and Denies dyspnea Respiratory: Respiratory: Reports no additional respiratory complaints and Denies dyspnea Gastrointestinal: Gastrointestinal: Reports no additional gastrointestinal complaints, Denies abdominal pain, Denies melena, Denies hematochezia, Denies change in bowel habits and Denies change in stool character Genitourinary: Genitourinary: Reports no additional male genitourinary complaints, Denies hematuria, Denies oliguria, Denies difficulty urinating, Denies dysuria, Denies urinary frequency, Denies urinary hesitancy, Denies urinary incontinence and Denies urinary urgency Musculoskeletal: Musculoskeletal: Reports no additional musculoskeletal complaints, Denies numbness and Denies tingling Neurologic: Denies dizziness, Denies loss of vision, Denies numbness and Denies tingling Psychiatric: Psychiatric: Reports no additional psychiatric complaints Endocrine: Endocrine: Reports no additional endocrine complaints Hematologic/Lymphatic: Hematologic/Lymphatic: Reports no additional hematologic/lymphatic complaints Allergic/Immunologic: Allergic/Immunologic: Reports no additional allergic/immunologic complaints PMFSH Past Medical History Attestation statement: The following information was validated with the patient. Source: old records reviewed and nursing notes reviewed Medical History ADD (attention deficit disorder) Bipolar affective disorder Depression GERD (gastroesophageal reflux disease) Herniated cervical disc Hiccups History of BPH History of torsion of testis Hx of hepatitis C Hx of substance abuse Surgical History History of cystoscopy Hx of adenoidectomy Hx of colonoscopy Hx of hernia repair S/P rotator cuff repair Status post excision of lipoma Social History Social History Alcohol intake: never Patient Tobacco Use Status: Current everyday Tobacco user Advance Directives: No Advance Directives Information Provided: No Physical Exam ED Vital Signs: Vital Signs - 24 hr 09/17/22 16:52 Temperature 97.8 F Pulse Rate 69 Respiratory Rate 18 Blood Pressure 157/101 H Pulse Oximetry 97 Oxygen Delivery Method Room Air BMI result Body Mass Index 25.7 Const General: cooperative, no acute distress, alert and awake Nutritional Appearance: well nourished Orientation/consciousness: patient oriented x3 Limitations: no limitations HENMT Head: Yes normal to inspection and Yes atraumatic Ears: hearing grossly normal bilaterally and external ears normal General nose exam: Normal external nose present, no nasal discharge noted and no epistaxis Face and sinus: Yes normal facial exam, No abrasion and No laceration Mouth: Normal oral and palatal mucosa present, no drooling and no muffled voice Eyes Periorbital: periorbital findings normal Eyelids: Yes eyelids normal Conjunctivae: conjunctivae normal Corneas: corneas abnormal on the left abrasion Pupils: Equal, round and reactive pupils present EOM: EOMs intact bilaterally Neck Neck: Yes normal visual inspection, Yes full ROM and Yes no lymphadenopathy Chest Chest palpation & inspection: normal inspection of the chest Resp Effort & Inspection: normal respiratory effort and able to speak in complete sentences GI Inspection: Yes normal to inspection Neuro General: patient oriented x3 and moves all extremities Cranial nerves: Yes Equal, round and reactive pupils present Cognition (Neuro): normal cognition Motor exam (neuro): 5/5 motor strength present throughout Sensory Exam: Normal double simultaneous stimulation for sensation Coordination: [id number] test normal Extrem General: Yes normal to inspection, Yes full ROM and Yes capillary refill normal Psych Appearance: grossly normal Mental Status: mental status grossly normal Affect: normal affect Attitude: cooperative Thought process: Normal thought process present Thought content: Normal thought content present Insight: Good insight present (Psych) Medications Administered Discontinued Medications Generic Name Dose Route Start Last Admin Trade Name Keri PRN Reason Stop Dose Admin Fluorescein Sodium 1 strip 09/17/22 16:52 09/17/22 17:19 Fluorescein Sodium Strip EYE-LEFT 09/17/22 16:53 Not Given ONCE ONE Tetracaine HCl 1 drop 09/17/22 16:52 09/17/22 17:19 Tetracaine Hcl/Pf 0.5% Oph Olivia 4 Ml Drops EYE-LEFT 09/17/22 16:53 Not Given ONCE ONE Medical Decision Making Medical Decision Making MDM Narrative: Patient is a 62 year old assigned male at with no reported medical history presenting to the emergency department today with left eye irritation. Patient's physical exam showed a left corneal abrasion but was otherwise unremarkable. I explained my physical exam findings to the patient. I answered all questions asked by the patient. I stressed the importance of the patient taking his medication as prescribed. I stressed the importance of the patient following up with his primary care provider and an web analytics specialist. I stressed the importance of the patient returning to the emergency department immediately if his symptoms were to worsen or if he were to develop any dizziness, shortness of breath, difficulty breathing, chest pain, blurry vision, loss of vision, nausea, vomiting, abdominal pain, fever, chills, back pain, or any other complaints. Patient verbalized agreement and understanding with this treatment plan and discharge. Differential Diagnosis Differential Diagnoses: The differential diagnosis associated with the presentation includes corneal abrasion, eye irritation, eye pain Discharge Plan Discharge Clinical Impression: Corneal abrasion Patient Disposition: Home, Self-Care Instructions: Corneal Abrasion (DC) Additional Instructions: Follow up with your primary care provider and an web analytics specialist. Return to the emergency department immediately if your symptoms worsen or if you develop any dizziness, shortness of breath, difficulty breathing, chest pain, blurry vision, loss of vision, nausea, vomiting, abdominal pain, fever, chills, back pain, or any other complaints. Prescriptions: New erythromycin 5 mg/gram (0.5 %) ointment 0.5 inch ophthalmic (eye) Q4H Qty: 3.5 0RF No Action clonazepam 0.5 mg Tablet 0.5 mg PO TID dextroamphetamine-amphetamine [Adderall] 5 mg Tablet 5 mg PO DAILY methadone 10 mg/mL Concentrate 48 mg PO DAILY Patient Comments: Pt states dose is coming down - presently at 48mg - from [facility] in [place] Rx Instructions: Daily dose admin at [facility] in [place] cephalexin 500 mg capsule 500 mg PO QID 7 Days Qty: 28 0RF ibuprofen 600 mg tablet 600 mg PO Q6H PRN (Reason: pain) Qty: 30 0RF sulfamethoxazole-trimethoprim [Bactrim DS] 800-160 mg tablet 1 tab PO BID Qty: 19 0RF doxycycline hyclate 100 mg tablet 100 mg PO BID Qty: 20 0RF cephalexin 750 mg capsule 750 mg PO BID Qty: 20 0RF cephalexin 500 mg capsule 500 mg PO QID 10 Days Qty: 40 0RF doxycycline hyclate 100 mg tablet 100 mg PO BID Qty: 20 0RF cephalexin 500 mg capsule 500 mg PO QID 10 Days Qty: 40 0RF ibuprofen 600 mg tablet 600 mg PO Q8H PRN (Reason: pain) Qty: 14 0RF doxycycline hyclate 100 mg tablet 100 mg PO BID Qty: 20 0RF Referrals: Sammy Rouse MD [Primary Care Provider] - Hung Garcia [Physician] - (Call to establish and follow up with an web analytics specialist. ) Interventions: ED Discharge Assessment Last Done: 09/17/22 17:29 Discharge Date/Time: 09/17/22 17:30 Print Language: [place]
== END 2022-09-17 17:30 | disposition home or self-care (01) ==
LOC: HO.ED 17:24
PROVIDERS: Emergency Provider Student in an Organized Health Care Education/Training Program; PCP Internal Medicine
DX: S05.02XA Injury of conjunctiva and corneal abrasion without foreign body, left eye, initial encounter (principal); X58.XXXA Exposure to other specified factors, initial encounter; Y93.9 Activity, unspecified; Y92.9 Unspecified place or not applicable; Y99.9 Unspecified external cause status; F17.200 Nicotine dependence, unspecified, uncomplicated; Z71.6 Tobacco abuse counseling; Z79.899 Other long term (current) drug therapy
CPT/HCPCS: 99283; 99284

== ENCOUNTER 2022-11-11 20:06 | Emergency (ER) | payer MEDICAID, SELFPAY ==
[2022-11-11 21:01] VITALS: BP 113/68; PULSE 70; RESP 18; TEMP 37; O2SAT 98; BMI 22.8
[2022-11-11 22:00] VITALS: BP 106/62; PULSE 72; RESP 16; TEMP 36.7; O2SAT 98
--- NOTE | 2022-11-11 22:29 | ED_ITS ---
HPI - General Adult General Chief complaint: ETOH/Substance Use Stated complaint: seeking detox Time Seen by Provider: 11/11/22 22:11 Source: patient, RN notes reviewed and old records reviewed Mode of arrival: ambulatory Limitations: no limitations History of Present Illness HPI narrative: 62-year-old male presents for evaluation of ?I am looking for detox. ? That he uses alcohol, heroin and cocaine He reports drinking a few nips of alcohol every day Last drink was 30 minutes prior to arrival He also endorses using heroin and cocaine Patient reports that he injects He denies any concern for any areas of infection No fevers or chill He reports that ?physically I feel fine. ? Patient reports that he is ?in some legal trouble and looking for detox. ? Related Data Home Medications Medication Instructions Recorded Confirmed clonazepam 0.5 mg tablet 0.5 mg PO TID 02/12/20 02/12/20 dextroamphetamine-amphetamine 5 mg 5 mg PO DAILY 02/12/20 02/12/20 tablet (Adderall) methadone 10 mg/mL oral concentrate 48 mg PO DAILY 02/13/20 02/13/20 Previous Rx's Medication Instructions Recorded sulfamethoxazole 800 1 tab PO BID #19 tabs 07/18/20 mg-trimethoprim 160 mg tablet (Bactrim DS) cephalexin 500 mg capsule 500 mg PO QID 7 days #28 caps 07/22/20 ibuprofen 600 mg tablet 600 mg PO Q6H PRN pain #30 tabs 07/22/20 cephalexin 750 mg capsule 750 mg PO BID #20 caps 12/14/20 doxycycline hyclate 100 mg tablet 100 mg PO BID #20 tabs 12/14/20 cephalexin 500 mg capsule 500 mg PO QID 10 days #40 caps 02/26/21 doxycycline hyclate 100 mg tablet 100 mg PO BID #20 tabs 02/26/21 doxycycline hyclate 100 mg tablet 100 mg PO BID #20 tabs 01/04/22 cephalexin 500 mg capsule 500 mg PO QID 10 days #40 caps 01/05/22 ibuprofen 600 mg tablet 600 mg PO Q8H PRN pain #14 tabs 01/05/22 erythromycin 5 mg/gram (0.5 %) eye 0.5 inch ophthalmic (eye) Q4H #3.5 09/17/22 ointment grams Allergies Allergy/AdvReac Type Severity Reaction Status Date / Time No Known Allergies Allergy Verified 01/03/22 21:01 [No Known Allergies*] Review of Systems Constitutional: Constitutional: Denies chills, Denies fever(s) and Denies weakness Cardiovascular: Cardiovascular: Denies chest pain and Denies dyspnea Respiratory: Respiratory: Denies dyspnea Gastrointestinal: Gastrointestinal: Denies abdominal pain, Denies nausea and Denies vomiting Musculoskeletal: Musculoskeletal: Denies back pain Neurologic: Denies weakness PMFSH Past Medical History Medical History ADD (attention deficit disorder) Bipolar affective disorder Depression GERD (gastroesophageal reflux disease) Herniated cervical disc Hiccups History of BPH History of torsion of testis Hx of hepatitis C Hx of substance abuse Surgical History History of cystoscopy Hx of adenoidectomy Hx of colonoscopy Hx of hernia repair S/P rotator cuff repair Status post excision of lipoma Social History Social History Alcohol intake: never Patient Tobacco Use Status: Current everyday Tobacco user Advance Directives: No Advance Directives Information Provided: Yes Physical Exam ED Vital Signs: Vital Signs - 24 hr 11/11/22 21:01 11/11/22 22:00 Temperature 98.6 F 98.0 F Pulse Rate 70 72 Respiratory Rate 18 16 Blood Pressure 113/68 106/62 Pulse Oximetry 98 98 Oxygen Delivery Method Room Air Room Air BMI result Body Mass Index 22.8 Const General: healthy appearing, comfortable, no acute distress, alert and awake Nutritional Appearance: well nourished Orientation/consciousness: patient oriented x3 [facility] Head: Yes normocephalic and Yes atraumatic Eyes Eyelids: Yes eyelids normal Conjunctivae: conjunctivae normal Sclerae: sclerae normal Corneas: corneas normal Pupils: Equal, round and reactive pupils present EOM: EOMs intact bilaterally Neck Neck: Yes full ROM Resp Effort & Inspection: normal respiratory effort, able to speak in complete sentences and not labored Cardio Rate: regular rate Rhythm: regular rhythm GI Inspection: No distended Palpation (GI): Soft to palpation, not firm, nontender, no guarding and not rigid Auscultation: normoactive bowel sounds Skin General skin exam: no rashes or lesions noted and elasticity normal Neuro General: patient oriented x3 Cranial nerves: Yes Equal, round and reactive pupils present and Yes Bilaterally intact EOM present Cognition (Neuro): normal cognition Extrem Other: Moving all extremities well without any obvious deformities Medical Decision Making Medical Decision Making MDM Narrative: 62-year-old male presents for evaluation requesting detox. Unfortunately recovery team was not available. I was able to provide him with a list of detox resources provided by the recovery team. The patient's vital signs within normal limits, he denies any somatic complaints. The patient was given the option of waiting and discussing with the care team in the morning or being discharged with resources and he elected to be discharged. The patient clinically is awake, alert and oriented, speaking in a clear sensorium and steady on his feet. Differential Diagnosis Differential Diagnoses: The differential diagnosis associated with the presentation includes Alcohol abuse Acute alcohol intoxication Heroin abuse Cocaine abuse Discharge Plan Discharge Clinical Impression: Polysubstance abuse Patient Disposition: Home, Self-Care Instructions: Polysubstance Abuse (ED) Additional Instructions: You may follow-up with any detox resources provided. You may return to the ER earlier in the day 2 discussed with instructional technology coach if you wish Prescriptions: No Action clonazepam 0.5 mg Tablet 0.5 mg PO TID dextroamphetamine-amphetamine [Adderall] 5 mg Tablet 5 mg PO DAILY methadone 10 mg/mL Concentrate 48 mg PO DAILY Patient Comments: Pt states dose is coming down - presently at 48mg - from [facility] in [place] Rx Instructions: Daily dose admin at [facility] [place] cephalexin 500 mg capsule 500 mg PO QID 7 Days Qty: 28 0RF ibuprofen 600 mg tablet 600 mg PO Q6H PRN (Reason: pain) Qty: 30 0RF sulfamethoxazole-trimethoprim [Bactrim DS] 800-160 mg tablet 1 tab PO BID Qty: 19 0RF doxycycline hyclate 100 mg tablet 100 mg PO BID Qty: 20 0RF cephalexin 750 mg capsule 750 mg PO BID Qty: 20 0RF cephalexin 500 mg capsule 500 mg PO QID 10 Days Qty: 40 0RF doxycycline hyclate 100 mg tablet 100 mg PO BID Qty: 20 0RF cephalexin 500 mg capsule 500 mg PO QID 10 Days Qty: 40 0RF ibuprofen 600 mg tablet 600 mg PO Q8H PRN (Reason: pain) Qty: 14 0RF doxycycline hyclate 100 mg tablet 100 mg PO BID Qty: 20 0RF erythromycin 5 mg/gram (0.5 %) ointment 0.5 inch ophthalmic (eye) Q4H Qty: 3.5 0RF
== END 2022-11-11 22:57 | disposition home or self-care (01) ==
PROVIDERS: Emergency Provider Emergency Medicine Emergency Medical Services
DX: F11.10 Opioid abuse, uncomplicated (principal); F14.10 Cocaine abuse, uncomplicated; F10.10 Alcohol abuse, uncomplicated; Y90.9 Presence of alcohol in blood, level not specified; Z71.51 Drug abuse counseling and surveillance of drug abuser; Z79.899 Other long term (current) drug therapy
CPT/HCPCS: 99283

== ENCOUNTER 2022-11-14 12:07 | Emergency (ER) | payer MEDICAID, SELFPAY ==
--- NOTE | ~2022-11-14 | XR_ITS ---
EXAMINATION: XR FOOT, RIGHT CLINICAL INFORMATION: Right toe injury. Question fracture COMPARISON: None available. TECHNIQUE: AP, lateral, and oblique views of the right foot. FINDINGS: There is transverse and vertical lucency proximal end distal phalanx great toe. The fracture extends to the PIP joint space. There is mild soft tissue swelling. No additional fracture seen. Mild loss of first metacarpal phalangeal joint is noted with periapical spurring. Rest of the joints are unremarkable. The ankle mortise and subtalar joints are normal. The soft tissues are normal. XR/XR foot RT 2V IMPRESSION: 1. Nondisplaced fracture proximal end distal phalanx great toe with extension to the PIP joint space. There is mild soft tissue swelling. 2. Mild degenerative changes first metatarsophalangeal joint.
[2022-11-14 12:16] VITALS: BP 132/76; PULSE 78; RESP 16; TEMP 37.3; O2SAT 98; BMI 20.7
--- NOTE | 2022-11-14 12:17 | ED.GENADULT ---
HPI - General Adult General Chief complaint: Extremity Injury, Lower Stated complaint: R toe inj Time Seen by Provider: 11/14/22 12:36 Source: patient Mode of arrival: ambulatory Limitations: no limitations History of Present Illness HPI narrative: Patient is a 62-year-old male presenting with right great toe pain and ecchymosis after hitting his toe on a curb while wearing sandals last night. States pain was worst immediately following the injury. Denies any numbness or tingling. Patient reports his tetanus is up to date and within the past 5 years. MD complaint: right toe pain Onset (ago): hour(s) Location: lower extremity Radiation: non-radiation Severity: moderate Quality: aching Pain Consistency: intermittent Relieving factors: rest Exacerbating factors: movement Associated symptoms: denies other symptoms Treatments prior to arrival: none Related Data Home Medications Medication Instructions Recorded Confirmed clonazepam 0.5 mg tablet 0.5 mg PO TID 02/12/20 02/12/20 dextroamphetamine-amphetamine 5 mg 5 mg PO DAILY 02/12/20 02/12/20 tablet (Adderall) methadone 10 mg/mL oral concentrate 48 mg PO DAILY 02/13/20 02/13/20 Previous Rx's Medication Instructions Recorded sulfamethoxazole 800 1 tab PO BID #19 tabs 07/18/20 mg-trimethoprim 160 mg tablet (Bactrim DS) cephalexin 500 mg capsule 500 mg PO QID 7 days #28 caps 07/22/20 ibuprofen 600 mg tablet 600 mg PO Q6H PRN pain #30 tabs 07/22/20 cephalexin 750 mg capsule 750 mg PO BID #20 caps 12/14/20 doxycycline hyclate 100 mg tablet 100 mg PO BID #20 tabs 12/14/20 cephalexin 500 mg capsule 500 mg PO QID 10 days #40 caps 02/26/21 doxycycline hyclate 100 mg tablet 100 mg PO BID #20 tabs 02/26/21 doxycycline hyclate 100 mg tablet 100 mg PO BID #20 tabs 01/04/22 cephalexin 500 mg capsule 500 mg PO QID 10 days #40 caps 01/05/22 ibuprofen 600 mg tablet 600 mg PO Q8H PRN pain #14 tabs 01/05/22 erythromycin 5 mg/gram (0.5 %) eye 0.5 inch ophthalmic (eye) Q4H #3.5 09/17/22 ointment grams amoxicillin 875 mg-potassium 1 tab PO BID #14 tabs 11/14/22 clavulanate 125 mg tablet Allergies Allergy/AdvReac Type Severity Reaction Status Date / Time No Known Allergies Allergy Verified 11/14/22 12:16 [No Known Allergies*] Review of Systems Review of Systems: As per HPI. Yes all other systems are reviewed and are negative Constitutional: Constitutional: Reports as per HPI [facility] Past Medical History Medical History ADD (attention deficit disorder) Bipolar affective disorder Depression GERD (gastroesophageal reflux disease) Herniated cervical disc Hiccups History of BPH History of torsion of testis Hx of hepatitis C Hx of substance abuse Surgical History History of cystoscopy Hx of adenoidectomy Hx of colonoscopy Hx of hernia repair S/P rotator cuff repair Status post excision of lipoma Social History Social History Alcohol intake: never Patient Tobacco Use Status: Current everyday Tobacco user Advance Directives: No Advance Directives Information Provided: Yes Physical Exam ED Vital Signs: Vital Signs - 24 hr 11/14/22 12:16 Temperature 99.1 F Pulse Rate 78 Respiratory Rate 16 Blood Pressure 132/76 Pulse Oximetry 98 Oxygen Delivery Method Room Air BMI result Body Mass Index 20.7 Vital signs have been reviewed and appear to be correct. Blood pressure normal. Heart rate normal. Respiratory rate normal. Temperature normal. Oxygen saturation normal. Const General: cooperative, healthy appearing and no acute distress Orientation/consciousness: oriented to person, oriented to place, oriented to time and patient oriented x3 Limitations: no limitations [facility] Head: Yes normocephalic and Yes atraumatic Ears: external ears normal General nose exam: Normal external nose present Face and sinus: Yes face symmetric Mouth: oropharynx normal and moist mucous membranes Throat: Yes uvula midline Eyes Pupils: Equal, round and reactive pupils present Neck Neck: Yes normal visual inspection and Yes supple Resp Effort & Inspection: normal respiratory effort and able to speak in complete sentences Auscultation: clear to auscultation bilaterally Cardio Rate: regular rate Rhythm: regular rhythm Heart sounds: S1 normal heart sound present and S2 normal heart sound present GI Palpation (GI): Soft to palpation and nontender Auscultation: normoactive bowel sounds General: Yes no CVA tenderness Back/Spine/Pelvis Back: no CVA tenderness Skin General skin exam: elasticity normal and turgor normal Neuro General: oriented to person, oriented to place, oriented to time, patient oriented x3, moves all extremities, no focal motor deficits and CN's II-XI intact bilaterally Cranial nerves: Yes Equal, round and reactive pupils present Cognition (Neuro): normal cognition Extrem General: Yes full ROM, Yes normal exam except as noted, Yes no pedal edema and Yes no calf tenderness Right lower extremity: foot Details: normal capillary refill, tenderness (no tenderness to MTP joint) Location: of the great toe Location: at the IP joint, toes with normal ROM, ecchymosis dorsal great toe Details: single and motor-sensory exam Details: two point discrimination normal, light-touch normal and pin-prick normal Ankle/foot/toe images: 1. superficial abrasion Psych Mental Status: mental status grossly normal Affect: normal affect Thought process: Normal thought process present Course Course Course Narrative: RME: 62 yold male presents to the ED for left right big toe injury that occured last nght. patient hit toe on the curb while wearing sandals last night. patient states some bleeding. Xray of foot ordered. physical exam to be done in [facility] [place] Medications Administered Discontinued Medications Generic Name Dose Route Start Last Admin Trade Name Freq PRN Reason Stop Dose Admin Cefazolin Sodium 2 gm/ Sodium 50 mls @ 100 mls/hr 11/14/22 13:36 11/14/22 14:02 Chloride IM 11/14/22 14:05 Infused ONCE ONE Infusion Medical Decision Making Medical Decision Making [facility] Narrative: Patient is a 62-year-old male presenting with right great toe pain and ecchymosis after hitting his toe on a curb while wearing sandals last night. On exam patient is awake, A+Ox3, VS WNL, afebrile, normal neurological exam without focal deficits, tenderness and ecchymosis to IP joint of right great toe, no tenderness to MTP joint, full ROM. Given reported symptoms and physical exam findings, initial differential includes contusion, abrasion, fracture. X-ray notable for nondisplaced fracture to the proximal and of the distal phalanx with extension to the IP joint space as well as mild soft tissue swelling. My interpretation is in agreement with the radiologist's interpretation. Patient stating he needs to leave the department immediately as his tire is losing air. Discussed the risks of leaving AMA up to and including infection and . Patient agrees to stay for IM injection of Ancef and placement of postop shoe. Will discharge patient home with prescription for Augmentin and referral to orthopedics. Return precautions discussed at bedside. Patient verbalized understanding of and agreement with plan. Differential Diagnosis Differential Diagnoses: The differential diagnosis associated with the presentation includes As per MDM. Independent Interpretation I performed an independent interpretation of an: Plain X-Ray Interpretation: Nondisplaced fracture to proximal and the distal phalanx of right great toe with mild soft tissue swelling Radiology Impression Discussion of test interpretation with radiology: I have reviewed the radiologist's reading. Radiologist Impression: XR/XR foot RT 2V IMPRESSION: 1.? Nondisplaced fracture proximal end distal phalanx great toe with extension to the PIP joint space. There is mild soft tissue swelling. 2.? Mild degenerative changes first metatarsophalangeal joint. ? External Record Review External record reviewed: Inpatient record, Office record and Outpatient record Prescription Management I considered prescription management with: Antibiotic Discharge Plan Discharge Clinical Impression: Fracture of toe of right foot Patient Disposition: Home, Self-Care Instructions: Toe Fracture (ED), Foot Fracture in Adults (ED), Post Surgical Shoe (ED) Additional Instructions: You were evaluated in the emergency department today for a toe injury. Your x-ray reveals you have a fracture of your right great toe. You are being referred to Orthopedics, please call them for a an appointment. Please use the postop shoe while walking. You are being prescribed an antibiotic to prevent infection, please take the full course as prescribed. Return to the emergency department if you develop worsening pain, redness spreading towards your foot, fever 100.4? F or greater, new numbness or tingling, or any other concerning symptoms. Prescriptions: New amoxicillin-pot clavulanate 875-125 mg tablet 1 tab PO BID Qty: 14 0RF No Action clonazepam 0.5 mg Tablet 0.5 mg PO TID dextroamphetamine-amphetamine [Adderall] 5 mg Tablet 5 mg PO DAILY methadone 10 mg/mL Concentrate 48 mg PO DAILY Patient Comments: Pt states dose is coming down - presently at 48mg - from [facility] in [place] Rx Instructions: Daily dose admin at [facility] [place] cephalexin 500 mg capsule 500 mg PO QID 7 Days Qty: 28 0RF ibuprofen 600 mg tablet 600 mg PO Q6H PRN (Reason: pain) Qty: 30 0RF sulfamethoxazole-trimethoprim [Bactrim DS] 800-160 mg tablet 1 tab PO BID Qty: 19 0RF doxycycline hyclate 100 mg tablet 100 mg PO BID Qty: 20 0RF cephalexin 750 mg capsule 750 mg PO BID Qty: 20 0RF cephalexin 500 mg capsule 500 mg PO QID 10 Days Qty: 40 0RF doxycycline hyclate 100 mg tablet 100 mg PO BID Qty: 20 0RF cephalexin 500 mg capsule 500 mg PO QID 10 Days Qty: 40 0RF ibuprofen 600 mg tablet 600 mg PO Q8H PRN (Reason: pain) Qty: 14 0RF doxycycline hyclate 100 mg tablet 100 mg PO BID Qty: 20 0RF erythromycin 5 mg/gram (0.5 %) ointment 0.5 inch ophthalmic (eye) Q4H Qty: 3.5 0RF [place] [facility] [place] [facility] [facility] [Provider Group] Interventions: ED Discharge Assessment Last Done: 11/14/22 14:06 Discharge Date/Time: 11/14/22 14:10
--- NOTE | 2022-11-14 14:04 | PC.NURSE ---
ancef was reconstituted with 2.5 mls of sterile water and administered in both right and left ventral gluteal areas as pt declined to have IV antibiotics prior to dc
== END 2022-11-14 14:10 | disposition home or self-care (01) ==
PROVIDERS: Emergency Provider Emergency Medicine Emergency Medical Services
DX: S92.401A Displaced unspecified fracture of right great toe, initial encounter for closed fracture (principal); M79.671 Pain in right foot; Y29.XXXA Contact with blunt object, undetermined intent, initial encounter; Y93.9 Activity, unspecified; Y92.9 Unspecified place or not applicable; Y99.9 Unspecified external cause status; Z79.899 Other long term (current) drug therapy
CPT/HCPCS: 73620; 96365; 96366; 99284; J0690

== ENCOUNTER 2023-01-14 13:04 | Outpatient (AMB) | payer MEDICAID, SELFPAY ==
--- NOTE | 2023-01-14 13:12 | A.OFFVIS_ITS ---
Intake Vital Signs 01/14/23 13:18 BP 124/78 Blood Pressure Location Lt radial Position Sitting Pulse 70 Pulse Source Pulse Oximeter Pulse Oximetry (%) 92 Oxygen Delivery Method Room Air Intake Visit Reasons: MAT INTAKE Intake Note: the patient presents for a mat intake Bag Mender Required: No Allergies No Known Allergies [No Known Allergies*] Allergy (Verified 02/21/23 09:41) Do you need a note to return to daycare/school/sports/work: No HPI MAT INTAKE HPI Details Patient presents as a referral from [facility] for continuation of MAT treatment for OUD. Pt reports he was at [facility] as a result of a section 35. States he was arrested and offered the choice of senior care or treatment. Pt reports he then spent 60 days in [facility] where he was started on suboxone and transitioned to sublocade immediately prior to discharge. Pt wishing to continue on the sublocade and ultimately come off of all MAT. Pt reports he lives in [place], has stable housing, and transportation is not a barrier for him. States his license and car registration have been suspended but he plans to re- activate both. Substance use history: Reports he started using substances when he was 13 years old. States he used to use benzos, amphetamines and quaaludes. Reports starting heroin and cocaine when he was 25 years old. Reports his route of choice is injection- is connected with [facility] for clean needles, and denies sharing needles with others. Longest period of recovery was 6 months in 1997. When pt was actively using- he was using 1 bundle/ daily, and 100 dollars worth of cocaine daily. Has tried methadone maintenance before but did not find it effective, felt as though he was trading one addiction for another and never felt great on it. Denies history of overdose. States he has narcan at home. Has been through detox multiple times at [facility] and [facility], as well as detox facilities in [place]. Does not currently attend AA or NA, plans to start attending meetings, reports he does not need a list of locations. 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 Pt planning on going to [employer] to get connected with a volleyball assistant coach. Unsure when. BH History: Pt does not have a psych provider at this time. Reports historically being diagnosed with bipolar and ADHD, and was only going to his psych provider for benzos. Denies history of psych hospotalizations. Denies history of self injurious behaviour, HI, SI. Medical History: Pt denies allergies to medications. Reports he does not take any home medications. Reports his PCP is Dr. Faust and that he has not seen PCP in 3-4 years. Prior history of Hep C which was treated with interferon per pt. Reports hernia repair 30-40 years ago, and left shoulder laproscopy 5 years ago. Reports he his last labwork done was while at [facility]. [facility] Medical History ADD (attention deficit disorder) Bipolar affective disorder Depression GERD (gastroesophageal reflux disease) Herniated cervical disc Hiccups History of BPH History of torsion of testis Hx of hepatitis C Hx of substance abuse Surgical History History of cystoscopy Hx of adenoidectomy Hx of colonoscopy Hx of hernia repair S/P rotator cuff repair Status post excision of lipoma Social History Alcohol intake: never Patient Tobacco Use Status: Current everyday Tobacco user Review of Systems Const Reports as per HPI and Reports no additional complaints Resp Reports as per HPI and Reports no additional complaints Neuro Reports no additional complaints Psych Reports no additional complaints Physical Exam Vital Signs: Last Vital Signs Pulse 70 01/14/23 13:18 BP 124/78 01/14/23 13:18 Pulse Ox 92 01/14/23 13:18 Oxygen Delivery Method Room Air 01/14/23 13:18 Const General: cooperative, healthy appearing, no acute distress and alert Nutritional Appearance: thin Orientation/consciousness: patient oriented x3 Limitations: no limitations Resp Effort & Inspection: normal respiratory effort Skin General skin exam: no rashes or lesions noted Neuro General: patient oriented x3 Psych Appearance: grossly normal Mental Status: mental status grossly normal Speech and movement: Normal speech and movement present and Clear speech present Affect: normal affect Attitude: cooperative Thought process: Normal thought process present Assessment & Plan Assessment & Plan (1) Opioid use disorder, severe, dependence: Code(s): F11.20 - Opioid dependence, uncomplicated Plan: Plan to follow up in one week for check in. Sublocade ordered. Encouraged to call [facility] with any questions or concerns, including if he begins to feel withdrawal symptoms. plan reviewed with Reanna [employer] and agree with all Coding Level of Care Code Tele Est Pt Level 4 (14754) Diagnoses Opioid use disorder, severe, dependence F11.20
[2023-01-14 13:18] VITALS: BP 124/78; PULSE 70; O2SAT 92
== END 2023-01-14 15:37 | disposition home or self-care (01) ==
PROVIDERS: Visit Provider Nurse Practitioner Psychiatric/Mental Health
DX: F11.20 Opioid dependence, uncomplicated (principal)
CPT/HCPCS: 99214

== ENCOUNTER → 2023-01-14 13:04 | Outpatient (BNVA) | payer MEDICAID, SELFPAY | PROVIDERS: Visit Provider Nurse Practitioner Psychiatric/Mental Health ==

== ENCOUNTER 2023-01-21 09:47 | Outpatient (AMB) | payer MEDICAID, SELFPAY ==
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
[2023-01-21 10:14] VITALS: BP 128/82; PULSE 64; O2SAT 94
== END 2023-01-21 11:13 | disposition home or self-care (01) ==
PROVIDERS: Visit Provider Nurse Practitioner Psychiatric/Mental Health
DX: F11.20 Opioid dependence, uncomplicated (principal)
CPT/HCPCS: 99213

== ENCOUNTER → 2023-01-21 09:47 | Outpatient (BNVA) | payer MEDICAID, SELFPAY | PROVIDERS: Visit Provider Nurse Practitioner Psychiatric/Mental Health | DX: F11.20 Opioid dependence, uncomplicated (principal); B19.20 Unspecified viral hepatitis C without hepatic coma; F17.200 Nicotine dependence, unspecified, uncomplicated; Z51.81 Encounter for therapeutic drug level monitoring; Z79.899 Other long term (current) drug therapy | CPT/HCPCS: 96372; 99212; Q9992 ==

== ENCOUNTER 2023-02-21 09:35 | Outpatient (AMB) | payer MEDICAID, SELFPAY ==
--- NOTE | 2023-02-21 09:36 | MHC.OFFVIS ---
Intake Vital Signs 02/21/23 09:40 BP 110/70 Blood Pressure Location Lt radial Position Sitting Pulse 69 Pulse Source Pulse Oximeter Pulse Oximetry (%) 99 Oxygen Delivery Method Room Air Intake Visit Reasons: mat visit Intake Note: the patient presents for a mat visit Public Safety Teacher Required: No Allergies No Known Allergies [No Known Allergies*] Allergy (Verified 02/21/23 09:41) Do you need a note to return to daycare/school/sports/work: No HPI mat visit HPI Details Pt presents for sublocade injection. He reports he has been using this past month, was unable to elaborate how much he is using daily or if it is consistently everyday stating it varies He has been using out of habit, says he mixes the heroin with his cocaine when he is using cocaine. Harm reduction reviewed. Reports he has court tomorrow in [place], and he has not been able to make contact with his public service officer in [facility]. He states he has a warrant due to this and feels as though he may be going to snf. Is concerned he is going to snf and will not be able to visit his mother in [place] who has cancer. [facility] Medical History ADD (attention deficit disorder) Bipolar affective disorder Depression GERD (gastroesophageal reflux disease) Herniated cervical disc Hiccups History of BPH History of torsion of testis Hx of hepatitis C Hx of substance abuse Surgical History History of cystoscopy Hx of adenoidectomy Hx of colonoscopy Hx of hernia repair S/P rotator cuff repair Status post excision of lipoma Social History Alcohol intake: never Patient Tobacco Use Status: Current everyday Tobacco user Review of Systems Const Reports as per HPI Physical Exam Vital Signs: Last Vital Signs Pulse 69 02/21/23 09:40 BP 110/70 02/21/23 09:40 Pulse Ox 99 02/21/23 09:40 Oxygen Delivery Method Room Air 02/21/23 09:40 Const General: no acute distress, alert and tired appearing Nutritional Appearance: thin Resp Effort & Inspection: normal respiratory effort Skin General skin exam: no rashes or lesions noted Psych Appearance: grossly normal Mental Status: mental status grossly normal Speech and movement: Normal speech and movement present Affect: Sad affect present and Anxious affect present Office Meds Sublocade 300 mg/1.5 mL solution,extended release subcutaneous syringe Performing Provider: Lucille Carney NP Performing Location: [facility] Administered by: Lucille Carney NP on 02/21/23 10:04 Dose Route Admin Location Dispensed Lot Number Expiration Date [facility] Information Assistant 300 mg subcut LLQ 1.5 mL [id number] 11/02/23 [address]-9 [employer]. Comments: Pt tolerated injection well. Educated not to press on or play with injection site. Reviewed signs of infection, encouraged to call [facility] with questions or concerns. Assessment & Plan Assessment & Plan (1) Opioid use disorder, severe, dependence: Code(s): F11.20 - Opioid dependence, uncomplicated Plan: Tolerating injection. Harm reduction discussed. Follow up in 4 weeks Encouraged to call [facility] with questins, concerns, or if he needs to be seen earlier. Orders: Orders AMB Buprenorphine Injection - Patient Supplied Today F11.20 - Opioid dependence, uncomplicated Medications: New buprenorphine ER (Sublocade) 100 mg (0.5 mL) subcut ONCE 0.5 mL 5RF Coding Level of Care Code Est Pt Level 3 (91629) Diagnoses Opioid use disorder, severe, dependence F11.20
[2023-02-21 09:40] VITALS: BP 110/70; PULSE 69; O2SAT 99
== END 2023-02-21 10:10 | disposition home or self-care (01) ==
PROVIDERS: Visit Provider Nurse Practitioner Family
DX: F11.20 Opioid dependence, uncomplicated (principal)
CPT/HCPCS: 99213

== ENCOUNTER → 2023-02-21 09:35 | Outpatient (BNVA) | payer MEDICAID, SELFPAY | PROVIDERS: Visit Provider Nurse Practitioner Family | DX: F11.20 Opioid dependence, uncomplicated (principal) | CPT/HCPCS: 96372; 99212; Q9992 ==